=== PATIENT | female | born 1930 | race Caucasian/White ===

== ENCOUNTER 2017-01-20 14:51 | Inpatient (IN) | payer MEDICARE, OTHER ==
--- NOTE | 2017-01-20 15:19 | EDM.PDOC ---
ED HPI GENERAL MEDICAL PROBLEM - General Chief Complaint: Gastrointestinal Problem Stated Complaint: SENT BY TOMMY CUEVAS Time Seen by Provider: 01/20/17 15:13 - History of Present Illness INITIAL COMMENTS - FREE TEXT/NARRATIVE: 86-year-old female comes emergency room from the clinic with dehydration dizziness and hyponatremia. And then the last month the patient was admitted to [facility] in [place] after having a fall hitting her head. CT of her head at that time was unremarkable she had a chest and abdomen CTs done that showed a T2 fracture. She was admitted and started on fluids. And seemed to do better. She was having continued dizziness she's been evaluated by Dr. Alas here in [place] and is scheduled to see him this coming Monday for more testing. However she is getting weaker and more dizzy on her CAT scan she did in [place] a renal mass was noted she has followup with urology in a few weeks. Today in the clinic her sodium was noted to be 119 this was confirmed by repeat testing creatinine is 0.9 BUN 22 her sodium usually runs in the low 130s. Urinalysis was unrevealing CBC showed a white count of 9590 hemoglobin and hematocrit of 13.5 and 38% respectively platelet count 386,000 patient had a repeat head CT was done that didn't show any acute changes. At this time the patient is having worsening dizziness aggravated by change of position. She has been unable to the or drink very much after being discharged from [place] and is getting more unsteady on her feet. Change of position tends to aggravate her dizziness. The patient's been using some ibuprofen Tylenol and Ultram for her pain she hasn't had any ibuprofen for a couple of days her last dose of Ultram was last night. Upper Back Pain Score (Numeric/FACES): 5 - Related Data Allergies Allergy/AdvReac Type Severity Reaction Status Date / Time atorvastatin calcium Allergy Joint Pain Verified 01/20/17 15:10 [From Lipitor] Home Meds: Home Meds Aspirin 81 mg PO DAILY 05/04/15 [History] Atenolol [Tenormin] 25 mg PO DAILY 05/04/15 [History] Calcitriol [Rocaltrol] 0.25 mcg PO DAILY 05/04/15 [History] Hydrochlorothiazide 25 mg PO DAILY 05/04/15 [History] Losartan [Cozaar] 100 mg PO DAILY 05/04/15 [History] Omeprazole 20 mg PO DAILY 05/04/15 [History] Simvastatin [Zocor] 20 mg PO BEDTIME 05/04/15 [History] Acetaminophen [Tylenol] 650 mg PO Q4H PRN #0 tablet 06/08/15 [Rx] Magnesium Oxide [Magnesium] 500 mg PO DAILY 01/20/17 [History] Naproxen [Naprosyn] 500 mg PO ASDIRECTED PRN 01/20/17 [History] traMADol [Ultram] 50 mg PO ASDIRECTED PRN 01/20/17 [History] Past Medical History Other Cardiovascular History: unspecified circulatory disease, heart disease, thoracic anyeursm Other Respiratory History: history of lung disease Other Neuro History: 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 Other Endocrine/Metabolic History: parathyroid issues, cant remeber Other Oncologic History: face and arm Other Dermatologic History: L ac cyst excision, biopsy/punch skin lesion of left hand, fresh frozen section R forearm - Past Surgical History Other HEENT Surgeries/Procedures: bilateral cataract sx Other Endocrine Surgeries/Procedures: parathyroidectomy Social & Family History - Tobacco Use Smoking Status *Q: Never Smoker Second Hand Smoke Exposure: Yes - Alcohol Use Days Per Week of Alcohol Use: 2 Number of Drinks Per Day: 2 Total Drinks Per Week: 4 - Recreational Drug Use Recreational Drug Use: No Drug Use in Last 12 Months: No ED ROS GENERAL - Review of Systems Review Of Systems: See Below Constitutional: Reports: No Symptoms HEENT: Reports: Vertigo. Denies: Ear Discharge, Ear Pain, Hearing Loss, Rhinitis Respiratory: Reports: No Symptoms Cardiovascular: Reports: No Symptoms GI/Abdominal: Reports: Nausea, Vomiting. Denies: Abdominal Pain, Constipation, Diarrhea : Reports: No Symptoms Neurological: Reports: Dizziness. Denies: Headache, Numbness, Seizure, Tingling , Tremors, Trouble Speaking Psychiatric: Reports: No Symptoms Hematologic/Lymphatic: Reports: No Symptoms Immunologic: Reports: No Symptoms ED EXAM, GENERAL - Physical Exam Exam: See Below Exam Limited By: No Limitations General Appearance: Alert, No Apparent Distress, Other (She has dizziness with change of position however returning her head to the right or left has not seemed to aggravate it at this time) Eye Exam: Bilateral Eye: Normal Inspection Ears: Normal External Exam, Normal Canal, Hearing Grossly Normal, Normal TMs Nose: Normal Inspection, Normal Mucosa, No Blood Throat/Mouth: Normal Inspection, Normal Lips, Normal Oropharynx, No Airway Compromise, Other Neck: Normal Inspection, Supple, Non-Tender, Full Range of Motion Respiratory/Chest: No Respiratory Distress, Lungs Clear, Normal Breath Sounds Cardiovascular: Normal Peripheral Pulses, Regular Rate, Rhythm, No Edema, No Murmur GI/Abdominal: Normal Bowel Sounds, Soft, Non-Tender Neurological: Alert, Oriented, Other (Radial nerves II through XII grossly intact cerebellar testing not done all muscle groups in upper and lower extremities are equal and appropriate deep tendon reflexes normal the brachial radialis) Skin Exam: Other (She has some bruising developing in the upper thoracic back area this is where she hit when she fell) Course - Vital Signs Last Recorded V/S: Last Vital Signs Temp 36.6 C 01/20/17 15:20 Pulse 65 01/20/17 15:20 Resp 18 01/20/17 15:20 BP 135/63 01/20/17 15:20 Pulse Ox 100 01/20/17 15:20 - Orders/Labs/Meds Orders: Active Orders 24 hr Category Date Time Status MAGNESIUM [CHEM] Stat Lab 01/20/17 12:40 Received Sodium Chloride 0.9% [Normal Saline] 1,000 ml Med 01/20/17 15:45 Active IV ASDIRECTED Medication Orders Sodium Chloride (Normal Saline) 1,000 mls @ 150 mls/hr IV ASDIRECTED SE[facility]N Last Admin: 01/20/17 15:51 Dose: 150 mls/hr Meds: Medications Generic Name Dose Route Start Last Admin Trade Name Freq PRN Reason Stop Dose Admin Sodium Chloride 1,000 mls @ 150 mls/hr 01/20/17 15:45 01/20/17 15:51 Normal Saline IV 150 mls/hr ASDIRECTED SE[facility]STI[facility]N Administration - Re-Assessments/Exams Free Text/Narrative Re-Assessment/Exam: 01/20/17 16:40 Patient was sent to emergency room from the clinic with dehydration dizziness and hyponatremia she has a brain MRI pending the patient has had continued nausea secondary to dizziness. And as a result is having difficulty maintaining her fluid status. Labs reviewed situation reviewed MRI reviewed which shows no acute changes. The patient is examined no significant abnormalities noted. Case discussed with our hospitalist , the patient will be admitted. Departure - Departure Time of Disposition: 16:45 Disposition: Admitted As Inpatient 66 Clinical Impression: Dehydration with hyponatremia, Vertigo - Discharge Information Forms: ED Department Discharge - My Orders Last 24 Hours: My Active Orders 01/20/17 12:40 MAGNESIUM [CHEM] Stat 01/20/17 15:45 Sodium Chloride 0.9% [Normal Saline] 1,000 ml IV ASDIRECTED - Assessment/Plan Last 24 Hours: My Active Orders 01/20/17 12:40 MAGNESIUM [CHEM] Stat 01/20/17 15:45 Sodium Chloride 0.9% [Normal Saline] 1,000 ml IV ASDIRECTED
[2017-01-20] MEDS: Sodium Chloride 0.9% 1,000 ML IV SCH ×2 (15:51→23:29)
--- NOTE | 2017-01-20 16:51 | PCM.HP ---
H&P History of Present Illness - General Date of Service: 01/20/17 Admit Problem/Dx: Confusion and Hypnatremia Source of Information: Patient, Family, Old Records, Police, Provider, RN Notes Reviewed History Limitations: Reports: Altered Mental Status - History of Present Illness Initial Comments - Free Text/Narative: This is an 86-year-old elderly white female with past medical history of hypertension, hyperlipidemia, COPD, history of CVA, history of cholecystectomy, thoracic aneurysm, chronic back pain, osteoporosis, osteoarthritis, history of basal cell carcinoma, history of H. pylori infection, chronic hypocalcemia and hypomagnesemia, history of pulmonary nodules, chronic cough, hx/o sensorineural hearing loss, and history of renal mass who presented to his primary care office for evaluation of nausea without emesis and was found to be hyponatremic with a sodium level of 119. Her symptoms is associated with anorexia, dehydration, vertigo, fatigue, neck pain and generalized weakness. She denies having systemic infection. Patient was recently admitted in [place] after recent fall related to hypotension. During that time, she was found to have T2 vertebral fracture but no invasive intervention offered. Her initial workup in the clinic shows a CBC remarkable for platelet 386 and neutrophils 83.1%. Her chemistry is remarkable for sodium 119, chloride 86, BUN 22, glucose 126, and alkaline phosphatase 121. Head CT scan report reads no acute intra-cranial abnormality. Her brain MRI report reads no acute diffusion abnormalities identified. Patient is being admitted for symptomatic hyponatremia. Her CODE STATUS is full. Upper Back Pain Score (Numeric/FACES): 5 - Related Data Allergies/Adverse Reactions: Allergies Allergy/AdvReac Type Severity Reaction Status Date / Time atorvastatin calcium Allergy Joint Pain Verified 01/20/17 15:10 [From Lipitor] Home Medications: Home Meds Aspirin 81 mg PO DAILY 05/04/15 [History] Atenolol [Tenormin] 25 mg PO DAILY 05/04/15 [History] Calcitriol [Rocaltrol] 0.25 mcg PO DAILY 05/04/15 [History] Hydrochlorothiazide 25 mg PO DAILY 05/04/15 [History] Losartan [Cozaar] 100 mg PO DAILY 05/04/15 [History] Omeprazole 20 mg PO DAILY 05/04/15 [History] Simvastatin [Zocor] 20 mg PO BEDTIME 09/21/15 [History] Acetaminophen [Tylenol] 650 mg PO Q4H PRN #0 tablet 06/08/15 [Rx] Magnesium Oxide [Magnesium] 500 mg PO DAILY 01/20/17 [History] Naproxen [Naprosyn] 500 mg PO ASDIRECTED PRN 01/20/17 [History] traMADol [Ultram] 50 mg PO ASDIRECTED PRN 01/20/17 [History] Past Medical History HEENT History: Reports: Impaired Vision Cardiovascular History: Reports: High Cholesterol, Hypertension Other Cardiovascular History: unspecified circulatory disease, heart disease, thoracic anyeursm Other Respiratory History: history of lung disease [employer] History: Reports: Musculoskeletal History: Reports: Other (See Below) Other Musculoskeletal History: fall and fx of T2 Other Neuro History: 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 Other Endocrine/Metabolic History: parathyroid issues, cant remeber Other Oncologic History: face and arm Other Dermatologic History: L ac cyst excision, biopsy/punch skin lesion of left hand, fresh frozen section R forearm - Past Surgical History Other HEENT Surgeries/Procedures: bilateral cataract sx Other Endocrine Surgeries/Procedures: parathyroidectomy Social & Family History - Tobacco Use Smoking Status *Q: Never Smoker Second Hand Smoke Exposure: Yes - Caffeine Use Caffeine Use: Reports: Coffee - Alcohol Use Days Per Week of Alcohol Use: 2 Number of Drinks Per Day: 2 Total Drinks Per Week: 4 - Recreational Drug Use Recreational Drug Use: No Drug Use in Last 12 Months: No H&P Review of Systems - Review of Systems: Review Of Systems: See Below General: Reports: Weakness, Fatigue, Decreased Appetite. Denies: Fever, Chills HEENT: Reports: No Symptoms Pulmonary: Denies: Shortness of Breath Cardiovascular: Denies: Chest Pain, Palpitations, Dyspnea on Exertion, Edema, Lightheadedness, Syncope, Claudication, Blood Pressure Problem Gastrointestinal: Reports: Anorexia, Decreased Appetite, Nausea. Denies: Abdominal Pain, Difficulty Swallowing, Vomiting Genitourinary: Reports: No Symptoms Musculoskeletal: Reports: Muscle Stiffness (neck) Skin: Denies: Cyanosis, Pallor, Diaphoresis, Rash, Erythema Psychiatric: Reports: Confusion. Denies: Depression, Anxiety, Hallucinations, Suicidal Ideation Neurological: Reports: Dizziness (vertigo), Weakness, Gait Disturbance. Denies : Numbness, Paresthesia, Seizure, Syncope, Tingling, Trouble Speaking, Difficulty Walking, Change in Speech Hematologic/Lymphatic: Reports: No Symptoms Immunologic: Reports: No Symptoms Exam - Exam Exam: See Below - Vital Signs Vital Signs: Last Vital Signs Temp 36.6 C 01/20/17 15:20 Pulse 65 01/20/17 15:20 Resp 18 01/20/17 15:20 BP 135/63 01/20/17 15:20 Pulse Ox 100 01/20/17 15:20 Weight: 68.039 kg - Exam General: Alert, Cooperative, Mild Distress. No: Oriented HEENT: Conjunctiva Clear, EACs Clear, EOMI, Hearing Intact, Mucosa Moist & [place] , Nares Patent, Normal Nasal Septum, Posterior Pharynx Clear, Pupils Equal, Pupils Reactive, TMs Clear Neck: Supple, Trachea Midline, +2 Carotid Pulse wo Bruit, Full Range of Motion. No: JVD Lungs: Clear to Auscultation, Normal Respiratory Effort Cardiovascular: Regular Rate, Regular Rhythm Abdomen: Normal Bowel Sounds, Soft. No: Organomegaly, Tenderness (Female) Exam: Deferred Rectal (Female) Exam: Deferred Back Exam: Normal Inspection, Decreased Range of Motion Extremities: Normal Inspection, Normal Pulses Peripheral Pulses: 2+: Posterior Tibial (L), Posterior Tibial (R), Dorsalis Pedis (L), Dorsalis Pedis (R) Skin: Warm, Dry, Intact Neuro Extensive - Mental Status: Alert, Normal Cognition, Memory Intact Neuro Extensive - Motor, Sensory, Reflexes: CN II-XII Intact (limited by dizziness and nausea), Normal Gait Psychiatric: Alert, Normal Affect, Normal Mood - Patient Data Lab Results last 24 hrs: Laboratory Results - last 24 hr 01/20/17 Range/Units 12:40 Magnesium 1.8 (1.8-2.4) mg/dl EKG INTERPRETATION EKG Date: 01/20/17 Time: 13:34 Rhythm: other (Sinus Bradycardia) Rate (beats/min): 55 Comparison: change from previous EKG EKG Interpretation Comments: 1st Degree AV Block and Slight ST elevation on V3-V6. Possible inferior infarct- old (not clear on ekg copy) *Q Meaningful Use (ADM) - VTE *Q VTE Criteria *Q: - Stroke *Q Stroke Criteria *Q: - AMI *Q AMI Criteria *Q: Problem List Initiated/Reviewed/Updated: Yes Orders Last 24hrs: Active Orders 24 hr Category Date Time Status Sodium Chloride 0.9% [Normal Saline] 1,000 ml Med 01/20/17 15:45 Active IV ASDIRECTED Medication Orders Sodium Chloride (Normal Saline) 1,000 mls @ 150 mls/hr IV ASDIRECTED [facility] Last Admin: 01/20/17 15:51 Dose: 150 mls/hr Assessment/Plan Comment:: Assessment/Plan: Acute: Symptomatic Hyponatremia (she is somewhat confused) - Na is 119 (132 last week per document) - She is not on SSRIs/SNRIs - She is not on HCTZ - Her oral intake is not the best per daughter - NS IVF for maintenance - Salt tablet 1 tab po TID - Routine BMP Poor Appetite - Marinol 2.5 mg po 15-20 mins before each meal - Can have anything she wants to eat Generalized Weakness - TFT and Vit D level - PT/OT for eval Dizziness/Vertigo - Has Hx/o Sensorineural Hearing Loss - Currently being worked on by Dr. 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
[2017-01-20] MEDS ORDERED: LORazepam 2 MG/ML MDV IV PRN (17:21)
[2017-01-20] MEDS ORDERED: Albuterol/Ipratropium 3.0-0.5 MG/3 ML Neb Soln NEB PRN (17:21)
[2017-01-20] MEDS ORDERED: Bisacodyl 5 MG Tab PO PRN (17:21)
[2017-01-20] MEDS ORDERED: Temazepam 15 MG Cap PO PRN (17:21)
[2017-01-20] MEDS ORDERED: Polyethylene Glycol 3350 Powder 17 GM Packet PO PRN (17:21)
[2017-01-20] MEDS ORDERED: Ondansetron 4 MG/2 ML SDV IV PRN (17:21)
[2017-01-20] MEDS ORDERED: Promethazine 12.5 MG in Sodium Chloride 0.9% 50 ML IV PRN (17:21)
[2017-01-20] MEDS ORDERED: Acetaminophen 325 MG Tab PO PRN (17:28)
[2017-01-20] MEDS ORDERED: Scopolamine 1.5 MG Transdermal Patch TOP ONE ×2 (17:29→21:05)
[2017-01-20] MEDS ORDERED: Metoprolol Tartrate 5 MG/5 ML SDV IVPUSH PRN (17:29)
[2017-01-20] MEDS: Potassium Chloride/Sodium Chloride Tab PO SCH (21:17)
[2017-01-20] MEDS: Simvastatin 40 MG Tab PO SCH (21:18)
[2017-01-21] MEDS: Sodium Chloride 0.9% 1,000 ML IV SCH ×3 (05:16→19:18)
[2017-01-21] MEDS: Dronabinol 2.5 MG Cap PO SCH ×3 (06:04→16:37)
--- NOTE | 2017-01-21 06:13 | PCM.PN ---
- General Info Date of Service: 01/21/17 Admission Dx/Problem (Free Text): Confusion and Hypnatremia Subjective Update: Follow Up Functional Status: Reports: pain controlled, urinating. Denies: new symptoms - Review of Systems General: Denies: Fever, Weakness, Fatigue, Malaise HEENT: Reports: no symptoms Pulmonary: Reports: no symptoms Cardiovascular: Reports: No Symptoms Gastrointestinal: Reports: Nausea. Denies: Abdominal pain, Vomiting Genitourinary: Reports: no symptoms Musculoskeletal: Reports: no symptoms Skin: Reports: no symptoms Neurological: Reports: Confusion, Dizziness, Weakness, Gait Disturbance Psychiatric: Denies: confusion, depression, anxiety, agitation, hallucinations Systems Review Comment:: No overnight or acute issues. Her Na level now is at 127. Her Mg is at 1.7 this am. Troponin x1 negative. She still complaints of dizziness and nausea which are not new to her. She has no other complaints. - Patient Data Vitals - most recent: Last Vital Signs Temp 36.2 C 01/20/17 19:53 Pulse 65 01/20/17 19:53 Resp 16 01/20/17 19:53 BP 130/39 L 01/20/17 21:16 Pulse Ox 100 01/20/17 19:53 Weight - most recent: 68.311 kg I&O - last 24 hours: Intake & Output 01/20/17 01/20/17 01/21/17 14:59 22:59 06:59 Intake Total 1593 Output Total 1250 Balance 343 Lab Results last 24 hrs: Laboratory Results - last 24 hr 01/20/17 01/20/17 Range/Units 20:46 20:55 Sodium 122 L (136-145) mEq/L MRSA (PCR) Negative Med Orders - Current: Current Medications Acetaminophen (Tylenol) 650 mg PO Q4H PRN PRN Reason: Pain (Mild 1-3)/fever Hydrocodone Bitart/Acetaminophen ([place] 325-5 Mg) 1 tab PO Q4H PRN PRN Reason: Pain (moderate 4-6) Albuterol/Ipratropium (Duoneb 3.0-0.5 Mg/3 Ml) 3 ml NEB Q4H PRN PRN Reason: Shortness Of Breath/wheezing Aspirin (Aspirin) 81 mg PO DAILY [facility] Atenolol (Tenormin) 25 mg PO DAILY [facility] Bisacodyl (Dulcolax) 5 mg PO DAILY PRN PRN Reason: Constipation Calcitriol (Rocaltrol) 0.25 mcg PO DAILY [facility] Dronabinol (Marinol) 2.5 mg PO TIDAC [facility] Last Admin: 01/21/17 06:04 Dose: Not Given Hydralazine HCl (Apresoline) 10 mg IVPUSH Q4H PRN PRN Reason: Hypertension Hydrochlorothiazide (Hydrochlorothiazide) 25 mg PO DAILY [facility] Hydromorphone HCl (Dilaudid) 0.25 mg IVPUSH Q2H PRN PRN Reason: Pain (severe 7-10) Sodium Chloride (Normal Saline) 1,000 mls @ 150 mls/hr IV ASDIRECTED [facility] Last Admin: 01/21/17 05:16 Dose: 150 mls/hr Promethazine HCl 12.5 mg/ (Sodium Chloride) 50.5 mls @ 100 mls/hr IV Q6H PRN PRN Reason: Nausea/Vomiting Lorazepam (Ativan) 0.25 mg IV Q6H PRN PRN Reason: Anxiety Losartan Potassium (Cozaar) 100 mg PO DAILY [facility] Magnesium Oxide (Magnesium Oxide) 400 mg PO DAILY [facility] Magnesium Sulfate (Pharmacy To Dose - Magnesium Replacement) 1 dose .XX ASDIRECTED [facility] Meclizine HCl (Antivert) 25 mg PO Q6H PRN PRN Reason: Dizziness Metoprolol Tartrate (Lopressor) 5 mg IVPUSH Q4H PRN PRN Reason: Tachycardia Ondansetron HCl (Zofran) 4 mg IV Q6H PRN PRN Reason: Nausea/Vomiting Oral Electrolytes (Thermotabs) 1 each PO TID [facility] Last Admin: 01/20/17 21:17 Dose: 1 each Pantoprazole Sodium (Protonix) 40 mg PO DAILY [facility] Polyethylene Glycol (Miralax) 17 gm PO DAILY PRN PRN Reason: Constipation Potassium Chloride (Pharmacy To Dose - Potassium Replacement) 1 dose .XX ASDIRECTED [facility] Senna/Docusate Sodium (Senna Plus) 1 tab PO BID PRN PRN Reason: Constipation Simvastatin (Zocor) 20 mg PO BEDTIME [facility] Last Admin: 01/20/17 21:18 Dose: 20 mg Temazepam (Restoril) 7.5 mg PO BEDTIME PRN PRN Reason: Sleep Discontinued Medications Magnesium Oxide [ (Magnesium] 500mg) 500 mg PO DAILY [facility] Scopolamine (Transderm-Scop) 1.5 mg TOP ONETIME ONE Stop: 01/20/17 17:30 Last Admin: 01/20/17 21:17 Dose: 1.5 mg Scopolamine (Transderm-Scop) 1.5 mg TOP ONETIME ONE Stop: 01/20/17 21:06 Last Admin: 01/20/17 23:39 Dose: Not Given Temazepam (Restoril) 7.5 mg PO BEDTIME PRN PRN Reason: Sleep - Exam General: alert, oriented, cooperative, no acute distress HEENT: Pupils equal, Pupils reactive, EOMI, Mucous membr. moist/pink, Other Neck: supple, trachea midline, no JVD, no thyromegaly Lungs: Clear to auscultation, Normal respiratory effort Cardiovascular: Regular Rate, Regular Rhythm Abdomen: bowel sounds present, soft, no tenderness, no distension (Female) Exam: Deferred Back Exam: Normal Inspection, Decreased Range of Motion Extremities: no edema, normal pulses, no tenderness/swelling, no clubbing, no cyanosis, no calf tenderness Peripheral Pulses: 2+: Dorsalis Pedis (L), Dorsalis Pedis (R) Skin: warm, dry, intact Neurological: no new focal deficit Psy/Mental Status: alert, normal affect, normal mood - Problem List Review Problem List Initiated/Reviewed/Updated: Yes - My Orders Last 24 Hours: My Active Orders 01/20/17 23:37 Temazepam [Restoril] 7.5 mg PO BEDTIME PRN 01/21/17 03:53 EKG 12 Lead [EKG Documentation Completion] [RC] AM 01/21/17 05:11 CKMB [CHEM] AM TROPONIN I [CHEM] AM 01/21/17 09:00 Magnesium Oxide 400 mg PO DAILY - Plan Plan:: Assessment/Plan: Acute: Symptomatic Hyponatremia (she is somewhat confused) - Na is 119 (132 last week per document), now at 127 - She is not on SSRIs/SNRIs or HCTZ - Her oral intake is not the best per daughter - Continue NS IVF for maintenance and Salt tablet 1 tab po TID - Routine BMP Poor Appetite - Marinol 2.5 mg po 15-20 mins before each meal - Can have anything she wants to eat - She had breakfast this am Generalized Weakness - TFT and Vit D level pending - Continue PT/OT Dizziness/Vertigo - Has Hx/o Sensorineural Hearing Loss - Currently being worked on by Dr. Alas - PT for vestibular eval - PRN meds for symptomatic control - Defer to Dr. Alas outpatient once discharge for further eval Sinus Bradycardia - On EKG form the clinic it shows a HR of 55 and 1st Degree AV Block - She is not on CCB or BB - Repeat EKG this AM: Sinus Bradycardia with 1st Degree AVB - Telemetry to monitor Hx/o Hypotension - Current BP is 135/63 mmHg Chronic: HTN HLD Cough Hx/o Sensorineural Hearing Loss Back Pain Hypocalcemia and Hypomagnesemia Hx/o Pancreatic Cyst Pulmonary Nodules T2 Vertebral Fracture Thoracic Aneurysm Renal Mass Plan: She looks better this am Continue current treatment Routine AM Labs Fall and Seizure Precautions Continue PT/OT consult SW/CM for d/c planning Code status: 1
[2017-01-21] MEDS: Aspirin 81 MG Tab.Chew PO SCH (08:21)
[2017-01-21] MEDS: Magnesium Oxide 400 MG Tab PO SCH (08:22)
[2017-01-21] MEDS: Potassium Chloride/Sodium Chloride Tab PO SCH ×3 (08:22→20:59)
[2017-01-21] MEDS: Pantoprazole 40 MG Tab.CR PO SCH (08:22)
[2017-01-21] MEDS: Atenolol 50 MG Tab PO SCH (08:22)
[2017-01-21] MEDS: Hydrochlorothiazide 25 MG Tab PO SCH (08:22)
[2017-01-21] MEDS: Losartan 100 MG Tab PO SCH (08:23)
[2017-01-21] MEDS: Calcitriol 0.25 MCG Cap PO SCH (08:23)
[2017-01-21] MEDS: Acetaminophen/HYDROcodone 325-5 MG Tab PO PRN ×3 (08:27→23:41)
[2017-01-21] MEDS ORDERED: MAGNESIUM OXIDE 500 MG PO SCH (09:00)
[2017-01-21] MEDS: HYDROmorphone 1 MG/ML Syringe IVPUSH PRN ×2 (18:52→21:12)
[2017-01-21] MEDS: Simvastatin 40 MG Tab PO SCH (20:59)
[2017-01-22] MEDS: hydrALAZINE 20 MG/ML SDV IVPUSH PRN ×2 (01:30→20:25)
[2017-01-22] MEDS: Sodium Chloride 0.9% 1,000 ML IV SCH ×2 (01:36→08:50)
[2017-01-22] MEDS: HYDROmorphone 1 MG/ML Syringe IVPUSH PRN ×2 (02:00→15:50)
[2017-01-22] MEDS: Acetaminophen/HYDROcodone 325-5 MG Tab PO PRN ×3 (04:25→20:08)
--- NOTE | 2017-01-22 06:34 | PCM.PN ---
- General Info Date of Service: 01/22/17 Admission Dx/Problem (Free Text): Confusion and Hypnatremia Subjective Update: Follow Up Functional Status: Reports: pain controlled, tolerating diet, urinating. Denies : new symptoms - Review of Systems General: Denies: Fever, Chills HEENT: Reports: no symptoms Pulmonary: Denies: shortness of breath Cardiovascular: Denies: Chest Pain Gastrointestinal: Denies: Abdominal pain, Nausea, Vomiting Genitourinary: Reports: no symptoms Musculoskeletal: Reports: no symptoms Neurological: Reports: Dizziness, Gait Disturbance. Denies: Difficulty Walking , Weakness Psychiatric: Denies: depression, anxiety, agitation, cravings Systems Review Comment:: No overnight or acute issues. She feel a bit better. Still dizzy but w/o nausea or emesis. She is now eating just fine and appetite is good. - Patient Data Vitals - most recent: Last Vital Signs Temp 36.7 C 01/22/17 04:08 Pulse 60 01/22/17 04:08 Resp 20 01/22/17 04:08 BP 176/65 H 01/22/17 04:30 Pulse Ox 100 01/22/17 04:08 Weight - most recent: 70.488 kg I&O - last 24 hours: Intake & Output 01/21/17 01/21/17 01/22/17 14:59 22:59 06:59 Intake Total 920 1835 2112 Output Total 600 1300 Balance 320 1835 812 Lab Results last 24 hrs: Laboratory Results - last 24 hr 01/21/17 01/21/17 01/21/17 Range/Units 06:00 06:00 06:00 WBC 6.08 (3.98-10.04) K/mm3 RBC 4.31 (3.98-5.22) M/mm3 Hgb 12.1 (11.2-15.7) gm/L Hct 34.5 (34.1-44.9) % MCV 80.0 (79.4-94.8) fl MCH 28.1 (25.6-32.2) pg MCHC 35.1 (32.2-35.5) g/dl RDW Std Deviation 43.2 (36.4-46.3) fL Plt Count 296 (182-369) K/mm3 MPV 9.6 (9.4-12.3) fl Neut % (Auto) 74.7 H (34.0-71.1) % Lymph % (Auto) 12.5 L (19.3-51.7) % [place] % (Auto) 11.7 (4.7-12.5) % Eos % (Auto) 0.7 (0.7-5.8) Baso % (Auto) 0.2 (0.1-1.2) % Neut # (Auto) 4.55 (1.56-6.13) K/mm3 Lymph # (Auto) 0.76 L (1.18-3.74) K/mm3 [place] # (Auto) 0.71 H (0.24-0.36) K/mm3 Eos # (Auto) 0.04 (0.04-0.36) K/mm3 Baso # (Auto) 0.01 (0.01-0.08) K/mm3 Sodium 127 L (136-145) mEq/L Potassium 4.1 (3.5-5.1) mEq/L Chloride 95 L (98-107) mEq/L Carbon Dioxide 20 L (21-32) mEq/L Anion Gap 16.1 H (5-15) BUN 17 (7-18) mg/dL Creatinine 0.8 (0.55-1.02) mg/dL Est Cr Clr Drug Dosing 43.59 mL/min Estimated GFR (MDRD) > 60 (>60) mL/min BUN/Creatinine Ratio 21.3 H (14-18) Glucose 76 L (83-115) mg/dL Calcium 8.3 L (8.5-10.1) mg/dL Magnesium 1.7 L (1.8-2.4) mg/dl CK-MB (CK-2) 1.5 (0-3.6) ng/ml Troponin I < 0.017 (0.00-0.056) ng/mL Free T4 1.80 H (0.76-1.46) ng/dL TSH 3rd Generation 0.574 (0.358-3.74) uIU/mL 01/22/17 Range/Units 06:00 WBC 7.10 (3.98-10.04) K/mm3 RBC 4.48 (3.98-5.22) M/mm3 Hgb 12.8 (11.2-15.7) gm/L Hct 36.9 (34.1-44.9) % MCV 82.4 (79.4-94.8) fl MCH 28.6 (25.6-32.2) pg MCHC 34.7 (32.2-35.5) g/dl RDW Std Deviation 46.4 H (36.4-46.3) fL Plt Count 318 (182-369) K/mm3 MPV 9.3 L (9.4-12.3) fl Neut % (Auto) 72.0 H (34.0-71.1) % Lymph % (Auto) 15.5 L (19.3-51.7) % [place] % (Auto) 10.7 (4.7-12.5) % Eos % (Auto) 1.1 (0.7-5.8) Baso % (Auto) 0.4 (0.1-1.2) % Neut # (Auto) 5.11 (1.56-6.13) K/mm3 Lymph # (Auto) 1.10 L (1.18-3.74) K/mm3 [place] # (Auto) 0.76 H (0.24-0.36) K/mm3 Eos # (Auto) 0.08 (0.04-0.36) K/mm3 Baso # (Auto) 0.03 (0.01-0.08) K/mm3 Sodium (136-145) mEq/L Potassium (3.5-5.1) mEq/L Chloride (98-107) mEq/L Carbon Dioxide (21-32) mEq/L Anion Gap (5-15) BUN (7-18) mg/dL Creatinine (0.55-1.02) mg/dL Est Cr Clr Drug Dosing mL/min Estimated GFR (MDRD) (>60) mL/min BUN/Creatinine Ratio (14-18) Glucose (83-115) mg/dL Calcium (8.5-10.1) mg/dL Magnesium (1.8-2.4) mg/dl CK-MB (CK-2) (0-3.6) ng/ml Troponin I (0.00-0.056) ng/mL Free T4 (0.76-1.46) ng/dL TSH 3rd Generation (0.358-3.74) uIU/mL Med Orders - Current: Current Medications Acetaminophen (Tylenol) 650 mg PO Q4H PRN PRN Reason: Pain (Mild 1-3)/fever Hydrocodone Bitart/Acetaminophen ([place] 325-5 Mg) 1 tab PO Q4H PRN PRN Reason: Pain (moderate 4-6) Last Admin: 01/22/17 04:25 Dose: 1 tab Albuterol/Ipratropium (Duoneb 3.0-0.5 Mg/3 Ml) 3 ml NEB Q4H PRN PRN Reason: Shortness Of Breath/wheezing Aspirin (Aspirin) 81 mg PO DAILY [facility] Last Admin: 01/21/17 08:21 Dose: 81 mg Atenolol (Tenormin) 25 mg PO DAILY [facility] Last Admin: 01/21/17 08:22 Dose: 25 mg Bisacodyl (Dulcolax) 5 mg PO DAILY PRN PRN Reason: Constipation Calcitriol (Rocaltrol) 0.25 mcg PO DAILY [facility] Last Admin: 01/21/17 08:23 Dose: 0.25 mcg Dronabinol (Marinol) 2.5 mg PO TIDAC [facility] Last Admin: 01/21/17 16:37 Dose: 2.5 mg Hydralazine HCl (Apresoline) 10 mg IVPUSH Q4H PRN PRN Reason: Hypertension Last Admin: 01/22/17 01:30 Dose: 10 mg Hydrochlorothiazide (Hydrochlorothiazide) 25 mg PO DAILY [facility] Last Admin: 01/21/17 08:22 Dose: 25 mg Hydromorphone HCl (Dilaudid) 0.25 mg IVPUSH Q2H PRN PRN Reason: Pain (severe 7-10) Last Admin: 01/22/17 02:00 Dose: 0.25 mg Sodium Chloride (Normal Saline) 1,000 mls @ 150 mls/hr IV ASDIRECTED [facility] Last Admin: 01/22/17 01:36 Dose: 150 mls/hr Promethazine HCl 12.5 mg/ (Sodium Chloride) 50.5 mls @ 100 mls/hr IV Q6H PRN PRN Reason: Nausea/Vomiting Lorazepam (Ativan) 0.25 mg IV Q6H PRN PRN Reason: Anxiety Losartan Potassium (Cozaar) 100 mg PO DAILY [facility] Last Admin: 01/21/17 08:23 Dose: 100 mg Magnesium Oxide (Magnesium Oxide) 400 mg PO DAILY [facility] Last Admin: 01/21/17 08:22 Dose: 400 mg Magnesium Sulfate (Pharmacy To Dose - Magnesium Replacement) 1 dose .XX ASDIRECTED [facility] Meclizine HCl (Antivert) 25 mg PO Q6H PRN PRN Reason: Dizziness Last Admin: 01/21/17 08:36 Dose: 25 mg Metoprolol Tartrate (Lopressor) 5 mg IVPUSH Q4H PRN PRN Reason: Tachycardia Ondansetron HCl (Zofran) 4 mg IV Q6H PRN PRN Reason: Nausea/Vomiting Oral Electrolytes (Thermotabs) 1 each PO TID [facility] Last Admin: 01/21/17 20:59 Dose: 1 each Pantoprazole Sodium (Protonix) 40 mg PO DAILY [facility] Last Admin: 01/21/17 08:22 Dose: 40 mg Polyethylene Glycol (Miralax) 17 gm PO DAILY PRN PRN Reason: Constipation Potassium Chloride (Pharmacy To Dose - Potassium Replacement) 1 dose .XX ASDIRECTED [facility] Senna/Docusate Sodium (Senna Plus) 1 tab PO BID PRN PRN Reason: Constipation Simvastatin (Zocor) 20 mg PO BEDTIME [facility] Last Admin: 01/21/17 20:59 Dose: 20 mg Temazepam (Restoril) 7.5 mg PO BEDTIME PRN PRN Reason: Sleep Discontinued Medications Magnesium Oxide [ (Magnesium] 500mg) 500 mg PO DAILY [facility] Scopolamine (Transderm-Scop) 1.5 mg TOP ONETIME ONE Stop: 01/20/17 17:30 Last Admin: 01/20/17 21:17 Dose: 1.5 mg Scopolamine (Transderm-Scop) 1.5 mg TOP ONETIME ONE Stop: 01/20/17 21:06 Last Admin: 01/20/17 23:39 Dose: Not Given Temazepam (Restoril) 7.5 mg PO BEDTIME PRN PRN Reason: Sleep - Exam General: alert, oriented, cooperative, no acute distress HEENT: Pupils equal, Pupils reactive, EOMI, Mucous membr. moist/pink Neck: supple Lungs: Clear to auscultation, Normal respiratory effort Cardiovascular: Regular Rhythm, Bradycardia Abdomen: bowel sounds present, soft, no tenderness, no distension (Female) Exam: Deferred Back Exam: Normal Inspection, Decreased Range of Motion Extremities: no edema, normal pulses, no tenderness/swelling, no clubbing, no cyanosis, no calf tenderness Skin: warm, dry, intact Neurological: no new focal deficit Psy/Mental Status: alert, normal affect, normal mood - Problem List Review Problem List Initiated/Reviewed/Updated: Yes - My Orders Last 24 Hours: My Active Orders 01/21/17 06:00 VITAMIN D 25-HYROXY (D2, D3) [REF] Stat 01/21/17 09:00 Magnesium Oxide 400 mg PO DAILY - Plan Plan:: Assessment/Plan: Acute: Hyponatremia, now Asymptomatic - Na is 119 (132 last week per document), level is no at 131 - She is not on SSRIs/SNRIs or HCTZ - Her oral intake has now picked up - Continue NS IVF for maintenance and Salt tablet 1 tab po TID - Routine BMP Generalized Weakness, Improved - TFT Low-normal TSH and Elevated FT4-suggestive of Hyperthyroidism - Vit D level pending - Continue PT/OT Dizziness/Vertigo, still lingers - Has Hx/o Sensorineural Hearing Loss - Currently being worked on by Dr. Alas - PT for vestibular eval scheduled for Monday - PRN meds for symptomatic control - Defer to Dr. Alas outpatient once discharge for further eval Sinus Bradycardia - On EKG form the clinic it shows a HR of 55 and 1st Degree AV Block - She is not on CCB or BB - Repeat EKG this AM: Sinus Bradycardia with 1st Degree AVB - Telemetry to monitor - D/c'd atenolol and start coreg 12.5 mg po BID first dose tonight Abnormal TFT - Result suggestive of Hyperthyroidism - Will check for T3 level - Consider outpatient for any further work up Resolved: Hx/o Hypotension - Current BP is 135/63 mmHg S/p Poor Appetite - Marinol 2.5 mg po 15-20 mins before each meal - Can have anything she wants to eat - She is no eating as usual Chronic: HTN HLD Cough Hx/o Sensorineural Hearing Loss Back Pain Hypocalcemia and Hypomagnesemia Hx/o Pancreatic Cyst Pulmonary Nodules T2 Vertebral Fracture Thoracic Aneurysm Renal Mass Plan: She continues to improve clinically Continue current treatment Routine AM Labs Fall and Seizure Precautions Continue PT/OT SW/CM for d/c planning Code status: 1 Patient lives on her own. She may not do well if her vestibular dysfunction persists. Will have SW/CM take a look at her home status.
[2017-01-22] MEDS: Dronabinol 2.5 MG Cap PO SCH ×3 (07:25→16:37)
[2017-01-22] MEDS: Calcitriol 0.25 MCG Cap PO SCH (08:08)
[2017-01-22] MEDS: Hydrochlorothiazide 25 MG Tab PO SCH (08:08)
[2017-01-22] MEDS: Magnesium Oxide 400 MG Tab PO SCH (08:08)
[2017-01-22] MEDS: Losartan 100 MG Tab PO SCH (08:08)
[2017-01-22] MEDS: Aspirin 81 MG Tab.Chew PO SCH (08:08)
[2017-01-22] MEDS: Pantoprazole 40 MG Tab.CR PO SCH (08:09)
[2017-01-22] MEDS: Potassium Chloride/Sodium Chloride Tab PO SCH ×3 (08:09→20:14)
[2017-01-22] MEDS: Atenolol 50 MG Tab PO SCH (09:02)
[2017-01-22] MEDS ORDERED: Magnesium Sulfate/Water 50 ML IV ONE (16:30)
[2017-01-22] MEDS: Simvastatin 40 MG Tab PO SCH (20:14)
[2017-01-22] MEDS: Carvedilol 12.5 MG Tab PO SCH (20:23)
[2017-01-23] MEDS: Acetaminophen/HYDROcodone 325-5 MG Tab PO PRN ×3 (00:39→09:15)
[2017-01-23] MEDS: hydrALAZINE 20 MG/ML SDV IVPUSH PRN (04:06)
[2017-01-23] MEDS: Dronabinol 2.5 MG Cap PO SCH ×3 (06:46→17:09)
[2017-01-23] MEDS ORDERED: Magnesium Sulfate/Water 2 GM in Premix Bag 1 BAG IV ONE (08:14)
[2017-01-23] MEDS ORDERED: Pneumococcal Polyvalent-23 Vaccine 0.5 ML SDV SUBCUT ONE (08:24)
[2017-01-23] MEDS ORDERED: Magnesium Sulfate/Water 50 ML ONE (09:02)
[2017-01-23] MEDS: Aspirin 81 MG Tab.Chew PO SCH (09:14)
[2017-01-23] MEDS: Potassium Chloride/Sodium Chloride Tab PO SCH ×3 (09:15→21:30)
[2017-01-23] MEDS: Calcitriol 0.25 MCG Cap PO SCH (09:15)
[2017-01-23] MEDS: Pantoprazole 40 MG Tab.CR PO SCH (09:15)
[2017-01-23] MEDS: Magnesium Oxide 400 MG Tab PO SCH (09:16)
[2017-01-23] MEDS: amLODIPine 5 MG Tab PO SCH (09:18)
[2017-01-23] MEDS: Carvedilol 12.5 MG Tab PO SCH ×2 (09:18→21:31)
[2017-01-23] MEDS: Hydrochlorothiazide 25 MG Tab PO SCH (09:19)
[2017-01-23] MEDS: Losartan 100 MG Tab PO SCH (09:19)
[2017-01-23] MEDS ORDERED: Methocarbamol 500 MG Tab PO ONE (09:46)
--- NOTE | 2017-01-23 09:54 | PCM.PN ---
- General Info Date of Service: 01/23/17 Admission Dx/Problem (Free Text): Confusion and Hypnatremia Aida is seen this morning; pleasant and orientated. She has complaints of right shoulder pain with any movement. She is rt hand dominant. Denies CP, SOB, abd pain, back pain today. Just finished with shower with OT; did well other than restricted rt arm/ shoulder movement today. Spoke with [id number] today with update. She provided information that patient is usually very independent and high functioning prior to this. Functional Status: Reports: tolerating diet, ambulating, urinating. Denies: new symptoms - Review of Systems General: Reports: No Symptoms HEENT: Reports: no symptoms Pulmonary: Reports: no symptoms. Denies: shortness of breath, cough Cardiovascular: Reports: No Symptoms. Denies: Chest Pain Gastrointestinal: Reports: No symptoms. Denies: Abdominal pain Genitourinary: Reports: no symptoms Musculoskeletal: Reports: shoulder pain (rt) Neurological: Reports: No Symptoms. Denies: Confusion Psychiatric: Reports: no symptoms. Denies: confusion - Patient Data Vitals - most recent: Last Vital Signs Temp 97.2 F 01/23/17 07:41 Pulse 62 01/23/17 09:18 Resp 16 01/23/17 07:41 BP 136/51 L 01/23/17 09:19 Pulse Ox 99 01/23/17 07:41 Weight - most recent: 155 lb 6.4 oz I&O - last 24 hours: Intake & Output 01/22/17 01/23/17 01/23/17 22:59 06:59 14:59 Intake Total 1122 500 Output Total 800 1700 Balance 322 -1200 Lab Results last 24 hrs: Laboratory Results - last 24 hr 01/23/17 01/23/17 Range/Units 09:10 09:10 WBC 6.73 (3.98-10.04) K/mm3 RBC 4.28 (3.98-5.22) M/mm3 Hgb 12.1 (11.2-15.7) gm/L Hct 34.8 (34.1-44.9) % MCV 81.3 (79.4-94.8) fl MCH 28.3 (25.6-32.2) pg MCHC 34.8 (32.2-35.5) g/dl RDW Std Deviation 45.8 (36.4-46.3) fL Plt Count 354 (182-369) K/mm3 MPV 9.1 L (9.4-12.3) fl Neut % (Auto) 73.9 H (34.0-71.1) % Lymph % (Auto) 15.9 L (19.3-51.7) % [place] % (Auto) 6.8 (4.7-12.5) % Eos % (Auto) 3.1 (0.7-5.8) Baso % (Auto) 0.3 (0.1-1.2) % Neut # (Auto) 4.97 (1.56-6.13) K/mm3 Lymph # (Auto) 1.07 L (1.18-3.74) K/mm3 [place] # (Auto) 0.46 H (0.24-0.36) K/mm3 Eos # (Auto) 0.21 (0.04-0.36) K/mm3 Baso # (Auto) 0.02 (0.01-0.08) K/mm3 Sodium 127 L (136-145) mEq/L Potassium 3.7 (3.5-5.1) mEq/L Chloride 94 L (98-107) mEq/L Carbon Dioxide 24 (21-32) mEq/L Anion Gap 12.7 (5-15) BUN 13 (7-18) mg/dL Creatinine 0.8 (0.55-1.02) mg/dL Est Cr Clr Drug Dosing 43.59 mL/min Estimated GFR (MDRD) > 60 (>60) mL/min BUN/Creatinine Ratio 16.3 (14-18) Glucose 106 (83-115) mg/dL Calcium 8.5 (8.5-10.1) mg/dL Magnesium 1.8 (1.8-2.4) mg/dl Med Orders - Current: Current Medications Acetaminophen (Tylenol) 650 mg PO Q4H PRN PRN Reason: Pain (Mild 1-3)/fever Hydrocodone Bitart/Acetaminophen ([place] 325-5 Mg) 1 tab PO Q4H PRN PRN Reason: Pain (moderate 4-6) Last Admin: 01/23/17 09:15 Dose: 1 tab Albuterol/Ipratropium (Duoneb 3.0-0.5 Mg/3 Ml) 3 ml NEB Q4H PRN PRN Reason: Shortness Of Breath/wheezing Amlodipine Besylate (Norvasc) 5 mg PO DAILY [facility] Last Admin: 01/23/17 09:18 Dose: 5 mg Aspirin (Aspirin) 81 mg PO DAILY [facility] Last Admin: 01/23/17 09:14 Dose: 81 mg Bisacodyl (Dulcolax) 5 mg PO DAILY PRN PRN Reason: Constipation Calcitriol (Rocaltrol) 0.25 mcg PO DAILY [facility] Last Admin: 01/23/17 09:15 Dose: 0.25 mcg Carvedilol (Coreg) 12.5 mg PO BID [facility] Last Admin: 01/23/17 09:18 Dose: 12.5 mg Dronabinol (Marinol) 2.5 mg PO TIDAC [facility] Last Admin: 01/23/17 06:46 Dose: 2.5 mg Hydralazine HCl (Apresoline) 10 mg IVPUSH Q4H PRN PRN Reason: Hypertension Last Admin: 01/23/17 04:06 Dose: 10 mg Hydrochlorothiazide (Hydrochlorothiazide) 25 mg PO DAILY [facility] Last Admin: 01/23/17 09:19 Dose: 25 mg Hydromorphone HCl (Dilaudid) 0.25 mg IVPUSH Q2H PRN PRN Reason: Pain (severe 7-10) Last Admin: 01/22/17 15:50 Dose: 0.25 mg Promethazine HCl 12.5 mg/ (Sodium Chloride) 50.5 mls @ 100 mls/hr IV Q6H PRN PRN Reason: Nausea/Vomiting Magnesium Sulfate 2 gm/ Premix 50 mls @ 25 mls/hr IV ONETIME ONE Stop: 01/23/17 10:13 Last Admin: 01/23/17 09:20 Dose: 25 mls/hr Lorazepam (Ativan) 0.25 mg IV Q6H PRN PRN Reason: Anxiety Losartan Potassium (Cozaar) 100 mg PO DAILY [facility] Last Admin: 01/23/17 09:19 Dose: 100 mg Magnesium Oxide (Magnesium Oxide) 400 mg PO DAILY [facility] Last Admin: 01/23/17 09:16 Dose: 400 mg Magnesium Sulfate (Pharmacy To Dose - Magnesium Replacement) 1 dose .XX ASDIRECTED [facility] Meclizine HCl (Antivert) 25 mg PO Q6H PRN PRN Reason: Dizziness Last Admin: 01/21/17 08:36 Dose: 25 mg Methocarbamol (Robaxin) 500 mg PO ONETIME ONE Stop: 01/23/17 09:47 Methocarbamol (Robaxin) 500 mg PO Q6H PRN PRN Reason: muscle spasms/shouler pain Metoprolol Tartrate (Lopressor) 5 mg IVPUSH Q4H PRN PRN Reason: Tachycardia Ondansetron HCl (Zofran) 4 mg IV Q6H PRN PRN Reason: Nausea/Vomiting Oral Electrolytes (Thermotabs) 1 each PO TID [facility] Last Admin: 01/23/17 09:15 Dose: 1 each Pantoprazole Sodium (Protonix) 40 mg PO DAILY [facility] Last Admin: 01/23/17 09:15 Dose: 40 mg Polyethylene Glycol (Miralax) 17 gm PO DAILY PRN PRN Reason: Constipation Potassium Chloride (Pharmacy To Dose - Potassium Replacement) 1 dose .XX ASDIRECTED [facility] Senna/Docusate Sodium (Senna Plus) 1 tab PO BID PRN PRN Reason: Constipation Simvastatin (Zocor) 20 mg PO BEDTIME [facility] Last Admin: 01/22/17 20:14 Dose: 20 mg Temazepam (Restoril) 7.5 mg PO BEDTIME PRN PRN Reason: Sleep Discontinued Medications Atenolol (Tenormin) 25 mg PO DAILY [facility] Last Admin: 01/22/17 09:02 Dose: Not Given Sodium Chloride (Normal Saline) 1,000 mls @ 150 mls/hr IV ASDIRECTED [facility] Last Admin: 01/22/17 08:50 Dose: 150 mls/hr Magnesium Sulfate (Magnesium Sulfate 2 Gm In Water 50 Ml) 50 mls @ 50 mls/hr IV ONETIME ONE Stop: 01/22/17 17:29 Last Admin: 01/22/17 16:37 Dose: 50 mls/hr Magnesium Sulfate (Magnesium Sulfate 2 Gm In Water 50 Ml) Confirm Administered Dose 50 mls @ as directed .ROUTE .STK-MED ONE Stop: 01/23/17 09:03 Last Admin: 01/23/17 09:25 Dose: Not Given Magnesium Oxide [ (Magnesium] 500mg) 500 mg PO DAILY [facility] Pneumococcal Polyvalent Vaccine (Pneumovax 23) 0.5 ml SUBCUT .ONCE ONE Stop: 06/12/17 08:25 Scopolamine (Transderm-Scop) 1.5 mg TOP ONETIME ONE Stop: 01/20/17 17:30 Last Admin: 01/20/17 21:17 Dose: 1.5 mg Scopolamine (Transderm-Scop) 1.5 mg TOP ONETIME ONE Stop: 01/20/17 21:06 Last Admin: 01/20/17 23:39 Dose: Not Given Temazepam (Restoril) 7.5 mg PO BEDTIME PRN PRN Reason: Sleep - Exam Quality Assessment: DVT prophylaxis General: alert, oriented, cooperative, no acute distress HEENT: Pupils equal, Pupils reactive, EOMI, Mucous membr. moist/pink Neck: supple Lungs: Clear to auscultation, Normal respiratory effort Cardiovascular: Regular Rate, Regular Rhythm Abdomen: bowel sounds present, soft, no tenderness, no distension (Female) Exam: Deferred Extremities: no edema, no calf tenderness, other (rt shoulder with pain diffusely with any ROM) Peripheral Pulses: 1+: Dorsalis Pedis (L), Dorsalis Pedis (R), 2+: Radial (L), Radial (R) Neurological: no new focal deficit Psy/Mental Status: alert, normal affect, normal mood - Problem List & Annotations (1) Dehydration with hyponatremia SNOMED Code(s): 54302917 Code(s): E87.1 - HYPO-OSMOLALITY AND HYPONATREMIA Status: Acute Priority : High Current Visit: Yes (2) Hypomagnesemia SNOMED Code(s): 980418623 Code(s): E83.42 - HYPOMAGNESEMIA Status: Acute Priority: High Current Visit: Yes (3) Shoulder pain, right SNOMED Code(s): 92432948, 72524396 Code(s): M25.511 - PAIN IN RIGHT SHOULDER Status: Acute Priority: High Current Visit: Yes Qualifiers: Chronicity: acute Qualified Code(s): M25.511 - Pain in right shoulder (4) Vertigo SNOMED Code(s): 476815963 Code(s): R42 - DIZZINESS AND GIDDINESS Status: Resolved Priority: High Current Visit: Yes (5) Hypertension SNOMED Code(s): 04321137 Code(s): I10 - ESSENTIAL (PRIMARY) HYPERTENSION Status: Chronic Priority : High Current Visit: Yes Qualifiers: Hypertension type: essential hypertension Qualified Code(s): I10 - Essential (primary) hypertension Annotation/Comment:: acute on chronic (6) Compression fracture of body of thoracic vertebra SNOMED Code(s): 903109125 Code(s): M48.54XA - COLLAPSED VERTEBRA, NEC, THORACIC REGION, INIT Status: Acute Priority: High Current Visit: Yes - Problem List Review Problem List Initiated/Reviewed/Updated: Yes - My Orders Last 24 Hours: My Active Orders 01/23/17 08:14 Magnesium Sulfate/Water [Magnesium Sulfate 2 GM in Water 50 ML] 2 gm Premix Bag 1 bag IV ONETIME 01/23/17 09:00 amLODIPine [Norvasc] 5 mg PO DAILY 01/23/17 09:42 Shoulder Comp Rt [CR] Routine 01/23/17 09:46 Methocarbamol [Robaxin] 500 mg PO ONETIME ONE Methocarbamol [Robaxin] 500 mg PO Q6H PRN 01/23/17 Lunch Heart Healthy Diet [DIET] - Plan Plan:: Assessment/Plan: Acute: Hyponatremia, now Asymptomatic - Na is 119 (132 last week per document), 131-->128 today - She is not on SSRIs/SNRIs - Her oral intake has now picked up - Salt tablet 1 tab po TID - NS infusion today - Hold HCTZ - Routine BMP Hypomagnesemia -Replace and cont to follow daily labs Right shoulder pain -s/p fall at home -Xray of rt shoulder today -robaxin, muscle relaxant now and TID PRN. Generalized Weakness, Improved - TFT Low-normal TSH and Elevated FT4-suggestive of Hyperthyroidism - Vit D level pending - Continue PT/OT Dizziness/Vertigo, still lingers--improving - Has Hx/o Sensorineural Hearing Loss - Currently being worked on by Dr. Alas - PT for vestibular eval scheduled for Monday - PRN meds for symptomatic control - Defer to Dr. Alas outpatient once discharge for further eval Sinus Bradycardia - On EKG form the clinic it shows a HR of 55 and 1st Degree AV Block - She is not on CCB or BB - Repeat EKG this AM: Sinus Bradycardia with 1st Degree AVB - Telemetry to monitor - D/c'd atenolol and start coreg 12.5 mg po BID first dose tonight Compression fx in thoracic vertebra -S/P recent fall -Eval in [place] during hospitalization recently; will obtain records for review -Query if surgical candidate for kyphoplasty Abnormal TFT - Result suggestive of Hyperthyroidism - Will check for T3 level - Consider outpatient for any further work up Resolved: Hx/o Hypotension - Current BP is 135/63 mmHg S/p Poor Appetite - Marinol 2.5 mg po 15-20 mins before each meal - Can have anything she wants to eat - She is no eating as usual Chronic: HTN HLD Cough Hx/o Sensorineural Hearing Loss Back Pain Hypocalcemia and Hypomagnesemia Hx/o Pancreatic Cyst Pulmonary Nodules T2 Vertebral Fracture Thoracic Aneurysm Renal Mass Plan: She continues to improve clinically Continue current treatment Routine AM Labs Fall and Seizure Precautions Continue PT/OT SW/CM for d/c planning Code status: 1 Patient lives on her own. She may not do well if her vestibular dysfunction and weakness persists. Will have SW/CM take a look at her home status.
[2017-01-23] MEDS: Sodium Chloride 0.9% 1,000 ML IV SCH (11:32)
--- NOTE | 2017-01-23 13:02 | CR ---
Right shoulder: Three views of the right shoulder were obtained. Comparison: No previous study. Calcifications are seen lateral to the shoulder believed to be dystrophic. Joint space narrowing is seen within the acromioclavicular joint. Minimal inferior spurring is noted off the glenohumeral joint. Nothing acute is seen. Impression: 1. Soft tissue calcifications presumably dystrophic off the lateral shoulder. 2. Mild degenerative change as described above. Diagnostic code #3
[2017-01-23] MEDS ORDERED: oxyCODONE 5 MG Tab PO ONE (13:44)
[2017-01-23] MEDS ORDERED: Methocarbamol 500 MG Tab PO PRN (15:00)
[2017-01-23] MEDS: Simvastatin 20 MG Tab PO SCH (21:30)
[2017-01-23] MEDS: oxyCODONE 5 MG Tab PO SCH (21:34)
[2017-01-24] MEDS: Acetaminophen/HYDROcodone 325-5 MG Tab PO PRN ×3 (03:13→18:53)
[2017-01-24] MEDS: Sodium Chloride 0.9% 1,000 ML IV SCH (03:18)
[2017-01-24] MEDS ORDERED: cefTRIAXone 1,000 MG VIAL IVPUSH SCH (06:30)
[2017-01-24] MEDS: cefTRIAXone 1 GM in Sodium Chloride 0.9% 100 ML IV SCH (06:46)
[2017-01-24] MEDS: Dronabinol 2.5 MG Cap PO SCH ×3 (06:47→16:12)
[2017-01-24] MEDS ORDERED: Magnesium Sulfate/Water 2 GM in Premix Bag 1 BAG IV ONE (08:00)
[2017-01-24] MEDS: Potassium Chloride/Sodium Chloride Tab PO SCH ×4 (08:35→21:34)
[2017-01-24] MEDS: amLODIPine 5 MG Tab PO SCH (08:36)
[2017-01-24] MEDS: Cholecalciferol (Vitamin D3) 1,000 Unit Tab PO SCH (08:36)
[2017-01-24] MEDS: Magnesium Oxide 400 MG Tab PO SCH (08:36)
[2017-01-24] MEDS: Aspirin 81 MG Tab.Chew PO SCH (08:36)
[2017-01-24] MEDS: Calcitriol 0.25 MCG Cap PO SCH (08:38)
[2017-01-24] MEDS: Losartan 100 MG Tab PO SCH (08:38)
[2017-01-24] MEDS: oxyCODONE 5 MG Tab PO SCH ×2 (08:38→21:33)
[2017-01-24] MEDS: Pantoprazole 40 MG Tab.CR PO SCH (08:39)
[2017-01-24] MEDS: Carvedilol 12.5 MG Tab PO SCH ×2 (08:39→21:33)
[2017-01-24] MEDS: Hydrochlorothiazide 25 MG Tab PO SCH (08:39)
[2017-01-24] MEDS: Acetaminophen 325 MG Tab PO PRN (12:47)
[2017-01-24] MEDS ORDERED: fentaNYL 12 MCG/HR Transdermal Patch TRDERM SCH (15:00)
[2017-01-24] MEDS: Lidocaine 5% 700 MG Patch TOP SCH (15:12)
--- NOTE | 2017-01-24 15:52 | PCM.PN ---
- General Info Date of Service: 01/24/17 Admission Dx/Problem (Free Text): Hyponatremia Aida is seen this morning; pleasant and orientated. Back pain is slightly improved today, shoulder pain also slightly improved Denies CP, SOB, abd pain. No neuropathy or radiculopathy findings or symptoms today. Functional Status: Reports: tolerating diet (eating improved slightly), ambulating, urinating - Review of Systems General: Reports: Weakness HEENT: Reports: headaches, other (dizziness with position changes). Denies: visual changes Pulmonary: Reports: no symptoms Cardiovascular: Reports: No Symptoms Gastrointestinal: Reports: No symptoms Genitourinary: Reports: no symptoms Musculoskeletal: Reports: neck pain, shoulder pain, back pain Neurological: Reports: Dizziness, Headache, Other (difficulty with swallowing pills today). Denies: Numbness, Paresthesia, Tingling, Trouble Speaking Psychiatric: Reports: no symptoms - Patient Data Vitals - most recent: Last Vital Signs Temp 97.5 F 01/24/17 12:51 Pulse 57 L 01/24/17 12:51 Resp 18 01/24/17 12:51 BP 113/45 L 01/24/17 12:51 Pulse Ox 97 01/24/17 12:51 Weight - most recent: 158 lb 12.8 oz I&O - last 24 hours: Intake & Output 01/24/17 01/24/17 01/24/17 06:59 14:59 22:59 Intake Total 1392 30 Output Total 1050 Balance 342 30 Lab Results last 24 hrs: Laboratory Results - last 24 hr 01/21/17 01/22/17 01/23/17 Range/Units 06:00 06:00 16:00 Sodium 126 L (136-145) mEq/L Potassium (3.5-5.1) mEq/L Chloride (98-107) mEq/L Carbon Dioxide (21-32) mEq/L Anion Gap (5-15) BUN (7-18) mg/dL Creatinine (0.55-1.02) mg/dL Est Cr Clr Drug Dosing mL/min Estimated GFR (MDRD) (>60) mL/min BUN/Creatinine Ratio (14-18) Glucose (83-115) mg/dL Calcium (8.5-10.1) mg/dL Magnesium (1.8-2.4) mg/dl Vitamin D 25-Hydroxy 28 L (30-100) ng/mL Total T3 74 L (87-178) ng/dL Urine Color (Yellow) Urine Appearance (Clear) Urine pH (5.0-8.0) Ur Specific [place] (1.005-1.030) Urine Protein (Negative) Urine Glucose (UA) (Negative) Urine Ketones (Negative) Urine Occult Blood (Negative) Urine Nitrite (Negative) Urine Bilirubin (Negative) Urine Urobilinogen (0.2-1.0) Ur Leukocyte Esterase (Negative) Urine RBC (0-5) /hpf Urine WBC (0-5) /hpf Urine WBC Clumps (NOT SEEN) /hpf Ur Epithelial Cells (0-5) /hpf Amorphous Sediment (NOT SEEN) /hpf Urine Bacteria (FEW) /hpf Urine Mucus (FEW) /hpf Urine Osmolality (400-1100) mosm/kg Ur Random Sodium (40-220) mEq/L 01/24/17 01/24/17 01/24/17 Range/Units 03:15 03:15 03:15 Sodium 127 L (136-145) mEq/L Potassium (3.5-5.1) mEq/L Chloride (98-107) mEq/L Carbon Dioxide (21-32) mEq/L Anion Gap (5-15) BUN (7-18) mg/dL Creatinine (0.55-1.02) mg/dL Est Cr Clr Drug Dosing mL/min Estimated GFR (MDRD) (>60) mL/min BUN/Creatinine Ratio (14-18) Glucose (83-115) mg/dL Calcium (8.5-10.1) mg/dL Magnesium (1.8-2.4) mg/dl Vitamin D 25-Hydroxy (30-100) ng/mL Total T3 (87-178) ng/dL Urine Color Green H (Yellow) Urine Appearance Slt cloudy H (Clear) Urine pH 6.0 (5.0-8.0) Ur Specific [place] 1.020 (1.005-1.030) Urine Protein Negative (Negative) Urine Glucose (UA) Negative (Negative) Urine Ketones Negative (Negative) Urine Occult Blood Negative (Negative) Urine Nitrite Negative (Negative) Urine Bilirubin Negative (Negative) Urine Urobilinogen 0.2 (0.2-1.0) Ur Leukocyte Esterase 2+ H (Negative) Urine RBC 0-5 (0-5) /hpf Urine WBC 10-20 H (0-5) /hpf Urine WBC Clumps Rare (NOT SEEN) /hpf Ur Epithelial Cells 0-5 (0-5) /hpf Amorphous Sediment Few H (NOT SEEN) /hpf Urine Bacteria Moderate H (FEW) /hpf Urine Mucus Not seen (FEW) /hpf Urine Osmolality 416 (400-1100) mosm/kg Ur Random Sodium (40-220) mEq/L 01/24/17 01/24/17 Range/Units 03:15 06:11 Sodium 127 L (136-145) mEq/L Potassium 3.9 (3.5-5.1) mEq/L Chloride 95 L (98-107) mEq/L Carbon Dioxide 23 (21-32) mEq/L Anion Gap 12.9 (5-15) BUN 12 (7-18) mg/dL Creatinine 0.6 (0.55-1.02) mg/dL Est Cr Clr Drug Dosing 58.12 mL/min Estimated GFR (MDRD) > 60 (>60) mL/min BUN/Creatinine Ratio 20.0 H (14-18) Glucose 93 (83-115) mg/dL Calcium 8.1 L (8.5-10.1) mg/dL Magnesium 1.7 L (1.8-2.4) mg/dl Vitamin D 25-Hydroxy (30-100) ng/mL Total T3 (87-178) ng/dL Urine Color (Yellow) Urine Appearance (Clear) Urine pH (5.0-8.0) Ur Specific [place] (1.005-1.030) Urine Protein (Negative) Urine Glucose (UA) (Negative) Urine Ketones (Negative) Urine Occult Blood (Negative) Urine Nitrite (Negative) Urine Bilirubin (Negative) Urine Urobilinogen (0.2-1.0) Ur Leukocyte Esterase (Negative) Urine RBC (0-5) /hpf Urine WBC (0-5) /hpf Urine WBC Clumps (NOT SEEN) /hpf Ur Epithelial Cells (0-5) /hpf Amorphous Sediment (NOT SEEN) /hpf Urine Bacteria (FEW) /hpf Urine Mucus (FEW) /hpf Urine Osmolality (400-1100) mosm/kg Ur Random Sodium 115 (40-220) mEq/L Med Orders - Current: Current Medications Acetaminophen (Tylenol) 650 mg PO Q4H PRN PRN Reason: Pain (Mild 1-3)/fever Last Admin: 01/24/17 12:47 Dose: 650 mg Hydrocodone Bitart/Acetaminophen (Eleele 325-5 Mg) 1 tab PO Q4H PRN PRN Reason: Pain (moderate 4-6) Last Admin: 01/24/17 12:47 Dose: 1 tab Albuterol/Ipratropium (Duoneb 3.0-0.5 Mg/3 Ml) 3 ml NEB Q4H PRN PRN Reason: Shortness Of Breath/wheezing Amlodipine Besylate (Norvasc) 5 mg PO DAILY [facility] Last Admin: 01/24/17 08:36 Dose: 5 mg Aspirin (Aspirin) 81 mg PO DAILY [facility] Last Admin: 01/24/17 08:36 Dose: 81 mg Bisacodyl (Dulcolax) 5 mg PO DAILY PRN PRN Reason: Constipation Calcitriol (Rocaltrol) 0.25 mcg PO DAILY [facility] Last Admin: 01/24/17 08:38 Dose: 0.25 mcg Carvedilol (Coreg) 12.5 mg PO BID [facility] Last Admin: 01/24/17 08:39 Dose: 12.5 mg Cholecalciferol (Vitamin D3) 5,000 units PO DAILY [facility] Last Admin: 01/24/17 08:36 Dose: 5,000 units Dronabinol (Marinol) 2.5 mg PO TIDAC [facility] Last Admin: 01/24/17 10:43 Dose: 2.5 mg Fentanyl (Duragesic) 12 mcg TRDERM Q72H [facility] Hydralazine HCl (Apresoline) 10 mg IVPUSH Q4H PRN PRN Reason: Hypertension Last Admin: 01/23/17 04:06 Dose: 10 mg Hydromorphone HCl (Dilaudid) 0.25 mg IVPUSH Q2H PRN PRN Reason: Pain (severe 7-10) Last Admin: 01/22/17 15:50 Dose: 0.25 mg Promethazine HCl 12.5 mg/ (Sodium Chloride) 50.5 mls @ 100 mls/hr IV Q6H PRN PRN Reason: Nausea/Vomiting Ceftriaxone Sodium 1 gm/ (Sodium Chloride) 100 mls @ 200 mls/hr IV Q24H [facility] Last Admin: 01/24/17 06:46 Dose: 200 mls/hr Lidocaine (Lidoderm 5%) 700 mg TOP Q24H [facility] Lorazepam (Ativan) 0.25 mg IV Q6H PRN PRN Reason: Anxiety Losartan Potassium (Cozaar) 100 mg PO DAILY [facility] Last Admin: 01/24/17 08:38 Dose: 100 mg Magnesium Oxide (Magnesium Oxide) 400 mg PO DAILY [facility] Last Admin: 01/24/17 08:36 Dose: 400 mg Magnesium Sulfate (Pharmacy To Dose - Magnesium Replacement) 1 dose .XX ASDIRECTED [facility] Meclizine HCl (Antivert) 25 mg PO Q6H PRN PRN Reason: Dizziness Last Admin: 01/21/17 08:36 Dose: 25 mg Methocarbamol (Robaxin) 500 mg PO Q6H PRN PRN Reason: muscle spasms/shouler pain Metoprolol Tartrate (Lopressor) 5 mg IVPUSH Q4H PRN PRN Reason: Tachycardia Miscellaneous Information (Remove Patch) 0 ea TRDERM Q24H [facility] Miscellaneous Information (Remove Patch) 0 ea TRDERM Q72H [facility] Ondansetron HCl (Zofran) 4 mg IV Q6H PRN PRN Reason: Nausea/Vomiting Oral Electrolytes (Thermotabs) 2 each PO TID [facility] Last Admin: 01/24/17 14:13 Dose: 2 each Oxycodone HCl (Oxycodone) 5 mg PO BID [facility] Last Admin: 01/24/17 08:38 Dose: 5 mg Pantoprazole Sodium (Protonix) 40 mg PO DAILY [facility] Last Admin: 01/24/17 08:39 Dose: 40 mg Polyethylene Glycol (Miralax) 17 gm PO DAILY PRN PRN Reason: Constipation Potassium Chloride (Pharmacy To Dose - Potassium Replacement) 1 dose .XX ASDIRECTED [facility] Senna/Docusate Sodium (Senna Plus) 1 tab PO BID PRN PRN Reason: Constipation Simvastatin (Zocor) 20 mg PO BEDTIME [facility] Last Admin: 01/23/17 21:30 Dose: 20 mg Temazepam (Restoril) 7.5 mg PO BEDTIME PRN PRN Reason: Sleep Discontinued Medications Atenolol (Tenormin) 25 mg PO DAILY [facility] Last Admin: 01/22/17 09:02 Dose: Not Given Ceftriaxone Sodium (Rocephin) 1,000 mg IVPUSH Q24H [facility] Last Admin: 01/24/17 07:34 Dose: Not Given Hydrochlorothiazide (Hydrochlorothiazide) 25 mg PO DAILY [facility] Last Admin: 01/24/17 08:39 Dose: 25 mg Sodium Chloride (Normal Saline) 1,000 mls @ 150 mls/hr IV ASDIRECTED [facility] Last Admin: 01/22/17 08:50 Dose: 150 mls/hr Magnesium Sulfate (Magnesium Sulfate 2 Gm In Water 50 Ml) 50 mls @ 50 mls/hr IV ONETIME ONE Stop: 01/22/17 17:29 Last Admin: 01/22/17 16:37 Dose: 50 mls/hr Magnesium Sulfate 2 gm/ Premix 50 mls @ 25 mls/hr IV ONETIME ONE Stop: 01/23/17 10:13 Last Admin: 01/23/17 09:20 Dose: 25 mls/hr Magnesium Sulfate (Magnesium Sulfate 2 Gm In Water 50 Ml) Confirm Administered Dose 50 mls @ as directed .ROUTE .STK-MED ONE Stop: 01/23/17 09:03 Last Admin: 01/23/17 09:25 Dose: Not Given Sodium Chloride (Normal Saline) 1,000 mls @ 75 mls/hr IV ASDIRECTED [facility] Last Admin: 01/24/17 03:18 Dose: 75 mls/hr Magnesium Sulfate 2 gm/ Premix 50 mls @ 25 mls/hr IV ONETIME ONE Stop: 01/24/17 09:59 Last Admin: 01/24/17 08:33 Dose: 25 mls/hr Methocarbamol (Robaxin) 500 mg PO ONETIME ONE Stop: 01/23/17 09:47 Last Admin: 01/23/17 10:14 Dose: 500 mg Magnesium Oxide [ (Magnesium] 500mg) 500 mg PO DAILY [facility] Oral Electrolytes (Thermotabs) 1 each PO TID [facility] Last Admin: 01/24/17 08:35 Dose: 1 each Oxycodone HCl (Oxycodone) 5 mg PO ONETIME ONE Stop: 01/23/17 13:45 Last Admin: 01/23/17 14:02 Dose: 5 mg Pneumococcal Polyvalent Vaccine (Pneumovax 23) 0.5 ml SUBCUT .ONCE ONE Stop: 01/23/17 08:25 Scopolamine (Transderm-Scop) 1.5 mg TOP ONETIME ONE Stop: 01/20/17 17:30 Last Admin: 01/20/17 21:17 Dose: 1.5 mg Scopolamine (Transderm-Scop) 1.5 mg TOP ONETIME ONE Stop: 01/20/17 21:06 Last Admin: 01/20/17 23:39 Dose: Not Given Simvastatin (Zocor) 20 mg PO BEDTIME [facility] Last Admin: 01/22/17 20:14 Dose: 20 mg Temazepam (Restoril) 7.5 mg PO BEDTIME PRN PRN Reason: Sleep - Exam Quality Assessment: DVT prophylaxis General: alert, oriented, cooperative, no acute distress HEENT: Pupils equal, Pupils reactive, EOMI, Mucous membr. moist/pink Neck: supple Lungs: Clear to auscultation, Normal respiratory effort, Decreased breath sounds (bases bilat) Cardiovascular: Regular Rate, Regular Rhythm Abdomen: bowel sounds present, soft, no tenderness, abnormal bowel sounds (Female) Exam: Deferred Extremities: no edema, no calf tenderness Peripheral Pulses: 1+: Dorsalis Pedis (L), Dorsalis Pedis (R) Skin: warm, dry, intact Neurological: no new focal deficit, normal speech, normal tone, strength equal bilateral, cranial nerves intact Psy/Mental Status: alert, normal affect, normal mood - Problem List & Annotations (1) Dehydration with hyponatremia SNOMED Code(s): 59752647 Code(s): E87.1 - HYPO-OSMOLALITY AND HYPONATREMIA Status: Acute Priority : High Current Visit: Yes (2) Hypomagnesemia SNOMED Code(s): 280923641 Code(s): E83.42 - HYPOMAGNESEMIA Status: Acute Priority: High Current Visit: Yes (3) Shoulder pain, right SNOMED Code(s): 67742418, 23608248 Code(s): M25.511 - PAIN IN RIGHT SHOULDER Status: Acute Priority: High Current Visit: Yes Qualifiers: Chronicity: acute Qualified Code(s): M25.511 - Pain in right shoulder (4) Vertigo SNOMED Code(s): 903793327 Code(s): R42 - DIZZINESS AND GIDDINESS Status: Resolved Priority: High Current Visit: Yes (5) Hypertension SNOMED Code(s): 09433149 Code(s): I10 - ESSENTIAL (PRIMARY) HYPERTENSION Status: Chronic Priority : High Current Visit: Yes Qualifiers: Hypertension type: essential hypertension Qualified Code(s): I10 - Essential (primary) hypertension Annotation/Comment:: acute on chronic (6) Compression fracture of body of thoracic vertebra SNOMED Code(s): 871642679 Code(s): M48.54XA - COLLAPSED VERTEBRA, NEC, THORACIC REGION, INIT Status: Acute Priority: High Current Visit: Yes - Problem List Review Problem List Initiated/Reviewed/Updated: Yes - My Orders Last 24 Hours: My Active Orders 01/23/17 15:00 Methocarbamol [Robaxin] 500 mg PO Q6H PRN 01/23/17 21:00 oxyCODONE 5 mg PO BID 01/24/17 03:15 OSMOLALITY,SERUM [CHEM] Routine SODIUM,NA [CHEM] Routine 01/24/17 06:00 cefTRIAXone [Rocephin] 1 gm Sodium Chloride 0.9% [Normal Saline] 100 ml IV Q24H 01/24/17 09:00 Cholecalciferol (Vitamin D3) [Vitamin D3] 5,000 units PO DAILY Potassium Chloride/NaCl [Thermotabs] 2 each PO TID 01/24/17 15:00 C Collar Applied [Spinal Immobilization] [RC] ASDIRECTED Lidocaine 5% [Lidoderm 5%] 700 mg TOP Q24H fentaNYL [Duragesic] 12 mcg TRDERM Q72H 01/24/17 15:12 Carotid Comp [US] Routine 01/24/17 Dinner Regular Diet [DIET] 01/25/17 05:11 BASIC METABOLIC PANEL,BMP [CHEM] AM CBC WITH AUTO DIFF [HEME] AM - Plan Plan:: Assessment/Plan: Acute: Hyponatremia - Na 119 at clinic, 120 on admit (132 last week per document, 136 in ER in [place] on 01/07/17), 131-->128 -->126 today - She is not on SSRIs/SNRIs - Her oral intake has now picked up - Salt tablet, increase to 2 tab po TID - NS infusion - Hold HCTZ - Routine BMP to follow Hypomagnesemia -Replace and cont to follow daily labs Compression fx T2 thoracic vertebra -S/P recent fall on 01/07/17 -Eval in [place] during hospitalization recently; will obtain records for review--CT reports from 01/07/17 show "acute mid anterior wedging compression fracture at T2, no retropulsion. No extension into posterior elements". -Query if surgical candidate for kyphoplasty---discussed with Dr. Hsu, T2 is not amendable to kyphoplasty. Recommends soft cervical collar, muscle relaxant, heat/ice and pain management. Added fentanyl patch today to current regimen along with lidocaine patch. Right shoulder pain; believe this is sequela of T2 compression fx -s/p fall at home -Xray of rt shoulder today -robaxin, muscle relaxant now and TID PRN. - Spoke with Dr. Hsu re compression fx---see blow AUTI -UC pending -Rocephin IV Q24 hours Generalized Weakness, Improved - TFT Low-normal TSH and Elevated FT4-suggestive of Hyperthyroidism; T3 elevated at 74 also suggestive of hyperthyroidism - Vit D level is low; supplement with vit D3 5,000 IU daily - Continue PT/OT Dizziness/Vertigo --improving - Has Hx/o Sensorineural Hearing Loss - Currently being worked on by Dr. Alas - PT for vestibular eval scheduled for Monday - PRN meds for symptomatic control - Defer to Dr. Alas outpatient once discharge for further eval -Patient has had prior outpatient workup including MRI of brain without contrast and CT of brain without contrast on 01/20/17, both unremarkable for acute findings. Prior echo done 04/2016 with EF of 65%, grade 1 diastolic dysfunction- unchanged from 05/05/15 -No carotid evaluation has been done as of yet; will order Sinus Bradycardia---Resolved or unchanged--stable - On EKG form the clinic it shows a HR of 55 and 1st Degree AV Block - Repeat EKG: Sinus Bradycardia with 1st Degree AVB - Telemetry to monitor--no acute changes - D/c'd atenolol and start coreg 12.5 mg po BID first dose tonight Abnormal TFT--low normal TSH with elevated T4 - Result suggestive of Hyperthyroidism - T3 also elevated at 74, suggestive of hyperthyroidism - Consider outpatient work up and/or follow up thyroid studies 3 months to follow Resolved: Hx/o Hypotension on admit S/p Poor Appetite - Marinol 2.5 mg po 15-20 mins before each meal - Can have anything she wants to eat - Appetite slowly improving Chronic: HTN HLD Hx/o Sensorineural Hearing Loss Chronic Back Pain Hypocalcemia and Hypomagnesemia by hx Hx/o Pancreatic Cyst Pulmonary Nodules T2 Vertebral Fracture--acute as above Renal Mass Other: Routine AM Labs Fall and Seizure Precautions Continue PT/OT DVT/GI prophylax SW/CM for d/c planning -Patient lives on her own at [facility]. Therapies recommending SNF rehab stay at this time, family also agrees as they have been with her for last 9+ days, caring for her--requires 24hour care at this time due to pain in her back/ shoulders, assistance with mobility. SW arranging SNF placement at this time. CM to arrange Neurosurgery or forestry extension specialist eval as outpatient prior to discharge. Patient is Full Code status
--- NOTE | 2017-01-24 16:18 | US ---
Carotid ultrasound: Duplex and color flow imaging was obtained of the carotid arteries. Comparison: Previous carotid ultrasound exam of 06/22/09. Mild amount of diffuse plaque is seen on both sides. Plaque has slightly increased in amount from previous exam. Velocity measurements Right side: CCA has a peak systolic velocity is 0.58 m/s. ICA has a peak systolic velocity of 0.89 m/s and peak end-diastolic velocity is 0.15 m/s. ECA has a peak systolic velocity of 1.12 m/s. Vertebral artery has a peak systolic velocity of 0.56 m/s. ICA/CCA ratio is 1.5. Left side: CCA has a peak systolic velocity of 0.61 m/s. ICA has a peak systolic velocity of 0.92 m/s and peak end-diastolic velocity of 0.22 m/s. ECA has a peak systolic velocity of 1.22 m/s. Vertebral artery has a peak systolic velocity of 0.57 m/s. Impression: 1. Mild amount of plaque. The amount of plaque has slightly increased in amount from previous exam. 2. Velocity measurements within both internal carotid arteries correspond to stenosis in the range of 1-49%. Diagnostic code #2
[2017-01-24] MEDS: Temazepam 7.5 MG Cap PO PRN (21:34)
[2017-01-24] MEDS: Simvastatin 20 MG Tab PO SCH (21:34)
[2017-01-25] MEDS: Acetaminophen/HYDROcodone 325-5 MG Tab PO PRN ×3 (02:04→20:56)
[2017-01-25] MEDS: Dronabinol 2.5 MG Cap PO SCH ×3 (06:13→16:26)
[2017-01-25] MEDS: cefTRIAXone 1 GM in Sodium Chloride 0.9% 100 ML IV SCH (06:13)
[2017-01-25] MEDS ORDERED: Magnesium Sulfate/Water 2 GM in Premix Bag 1 BAG IV ONE (08:42)
[2017-01-25] MEDS: Pantoprazole 40 MG Tab.CR PO SCH (09:07)
[2017-01-25] MEDS: Cholecalciferol (Vitamin D3) 1,000 Unit Tab PO SCH (09:07)
[2017-01-25] MEDS: Losartan 100 MG Tab PO SCH (09:08)
[2017-01-25] MEDS: Potassium Chloride/Sodium Chloride Tab PO SCH ×3 (09:08→20:56)
[2017-01-25] MEDS: Calcitriol 0.25 MCG Cap PO SCH (09:08)
[2017-01-25] MEDS: Aspirin 81 MG Tab.Chew PO SCH (09:08)
[2017-01-25] MEDS: oxyCODONE 5 MG Tab PO SCH ×2 (09:08→20:57)
[2017-01-25] MEDS: Magnesium Oxide 400 MG Tab PO SCH ×2 (09:08→20:56)
[2017-01-25] MEDS: amLODIPine 5 MG Tab PO SCH (09:08)
[2017-01-25] MEDS: Carvedilol 12.5 MG Tab PO SCH ×2 (09:09→20:56)
[2017-01-25] MEDS ORDERED: Acetaminophen/oxyCODONE 325-5 MG Tab ONE (11:06)
--- NOTE | 2017-01-25 13:08 | PCM.PN ---
- General Info Date of Service: 01/25/17 Admission Dx/Problem (Free Text): Hyponatremia Aida is seen this morning with team rounding; pleasant and orientated. Color is improved today. Pain is better today and now "only when I move"; was up ambulatory with PT this am, did well with pain much improved from yesterday with ambulation. Denies CP, SOB, abd pain. No neuropathy or radiculopathy findings or symptoms today. Sodium continues to be low- no neurologic changes or mental status changes, more awake, alert and conversant today. Functional Status: Reports: pain controlled, tolerating diet (appetite is improved), ambulating, urinating. Denies: new symptoms - Review of Systems HEENT: Reports: no symptoms Pulmonary: Reports: no symptoms. Denies: shortness of breath, cough Cardiovascular: Reports: No Symptoms. Denies: Chest Pain Gastrointestinal: Reports: No symptoms. Denies: Nausea Musculoskeletal: Reports: neck pain, back pain Neurological: Reports: No Symptoms Psychiatric: Reports: no symptoms - Patient Data Vitals - most recent: Last Vital Signs Temp 97.3 F 01/25/17 09:31 Pulse 56 L 01/25/17 09:09 Resp 12 01/25/17 09:31 BP 148/93 H 01/25/17 09:31 Pulse Ox 97 01/25/17 04:18 Weight - most recent: 160 lb 11.2 oz I&O - last 24 hours: Intake & Output 01/24/17 01/25/17 01/25/17 22:59 06:59 14:59 Intake Total 1700 400 220 Output Total 1750 1400 Balance -50 -1000 220 Lab Results last 24 hrs: Laboratory Results - last 24 hr 01/24/17 01/24/17 01/24/17 Range/Units 03:15 03:15 03:15 WBC (3.98-10.04) K/mm3 RBC (3.98-5.22) M/mm3 Hgb (11.2-15.7) gm/L Hct (34.1-44.9) % MCV (79.4-94.8) fl MCH (25.6-32.2) pg MCHC (32.2-35.5) g/dl RDW Std Deviation (36.4-46.3) fL Plt Count (182-369) K/mm3 MPV (9.4-12.3) fl Neut % (Auto) (34.0-71.1) % Lymph % (Auto) (19.3-51.7) % Benzie % (Auto) (4.7-12.5) % Eos % (Auto) (0.7-5.8) Baso % (Auto) (0.1-1.2) % Neut # (Auto) (1.56-6.13) K/mm3 Lymph # (Auto) (1.18-3.74) K/mm3 Benzie # (Auto) (0.24-0.36) K/mm3 Eos # (Auto) (0.04-0.36) K/mm3 Baso # (Auto) (0.01-0.08) K/mm3 Sodium 127 L (136-145) mEq/L Potassium (3.5-5.1) mEq/L Chloride (98-107) mEq/L Carbon Dioxide (21-32) mEq/L Anion Gap (5-15) BUN (7-18) mg/dL Creatinine (0.55-1.02) mg/dL Est Cr Clr Drug Dosing mL/min Estimated GFR (MDRD) (>60) mL/min BUN/Creatinine Ratio (14-18) Glucose (83-115) mg/dL Serum Osmolality 263 L (280-300) mosm/kg Calcium (8.5-10.1) mg/dL Magnesium (1.8-2.4) mg/dl Urine Osmolality 416 (400-1100) mosm/kg Ur Random Sodium 115 (40-220) mEq/L 01/25/17 01/25/17 01/25/17 Range/Units 06:15 06:15 06:30 WBC 4.01 (3.98-10.04) K/mm3 RBC 3.86 L (3.98-5.22) M/mm3 Hgb 10.9 L (11.2-15.7) gm/L Hct 31.8 L (34.1-44.9) % MCV 82.4 (79.4-94.8) fl MCH 28.2 (25.6-32.2) pg MCHC 34.3 (32.2-35.5) g/dl RDW Std Deviation 45.4 (36.4-46.3) fL Plt Count 255 (182-369) K/mm3 MPV 10.3 (9.4-12.3) fl Neut % (Auto) 64.9 (34.0-71.1) % Lymph % (Auto) 18.7 L (19.3-51.7) % Benzie % (Auto) 9.7 (4.7-12.5) % Eos % (Auto) 5.7 (0.7-5.8) Baso % (Auto) 0.5 (0.1-1.2) % Neut # (Auto) 2.60 (1.56-6.13) K/mm3 Lymph # (Auto) 0.75 L (1.18-3.74) K/mm3 Benzie # (Auto) 0.39 H (0.24-0.36) K/mm3 Eos # (Auto) 0.23 (0.04-0.36) K/mm3 Baso # (Auto) 0.02 (0.01-0.08) K/mm3 Sodium 127 L (136-145) mEq/L Potassium 3.9 (3.5-5.1) mEq/L Chloride 93 L (98-107) mEq/L Carbon Dioxide 26 (21-32) mEq/L Anion Gap 11.9 (5-15) BUN 12 (7-18) mg/dL Creatinine 0.7 (0.55-1.02) mg/dL Est Cr Clr Drug Dosing 50.18 mL/min Estimated GFR (MDRD) > 60 (>60) mL/min BUN/Creatinine Ratio 17.1 (14-18) Glucose 90 (83-115) mg/dL Serum Osmolality (280-300) mosm/kg Calcium 8.1 L (8.5-10.1) mg/dL Magnesium 1.7 L (1.8-2.4) mg/dl Urine Osmolality (400-1100) mosm/kg Ur Random Sodium (40-220) mEq/L Sonu Results last 24 hrs: Microbiology 01/24/17 03:15 Urine Culture - Preliminary Urine, Clean Catch Viridans [employer] Streptococci Med Orders - Current: Current Medications Acetaminophen (Tylenol) 650 mg PO Q4H PRN PRN Reason: Pain (Mild 1-3)/fever Last Admin: 01/24/17 12:47 Dose: 650 mg Hydrocodone Bitart/Acetaminophen ([place] 325-5 Mg) 1 tab PO Q4H PRN PRN Reason: Pain (moderate 4-6) Last Admin: 01/25/17 11:12 Dose: 1 tab Albuterol/Ipratropium (Duoneb 3.0-0.5 Mg/3 Ml) 3 ml NEB Q4H PRN PRN Reason: Shortness Of Breath/wheezing Amlodipine Besylate (Norvasc) 5 mg PO DAILY [facility] Last Admin: 01/25/17 09:08 Dose: 5 mg Aspirin (Aspirin) 81 mg PO DAILY [facility] Last Admin: 01/25/17 09:08 Dose: 81 mg Bisacodyl (Dulcolax) 5 mg PO DAILY PRN PRN Reason: Constipation Last Admin: 01/24/17 21:44 Dose: 5 mg Calcitriol (Rocaltrol) 0.25 mcg PO DAILY [facility] Last Admin: 01/25/17 09:08 Dose: 0.25 mcg Carvedilol (Coreg) 12.5 mg PO BID [facility] Last Admin: 01/25/17 09:09 Dose: 12.5 mg Cholecalciferol (Vitamin D3) 5,000 units PO DAILY [facility] Last Admin: 01/25/17 09:07 Dose: 5,000 units Dronabinol (Marinol) 2.5 mg PO TIDAC [facility] Last Admin: 01/25/17 11:09 Dose: 2.5 mg Fentanyl (Duragesic) 12 mcg TRDERM Q72H [facility] Last Admin: 01/24/17 15:13 Dose: 12 mcg Hydralazine HCl (Apresoline) 10 mg IVPUSH Q4H PRN PRN Reason: Hypertension Last Admin: 01/23/17 04:06 Dose: 10 mg Hydromorphone HCl (Dilaudid) 0.25 mg IVPUSH Q2H PRN PRN Reason: Pain (severe 7-10) Last Admin: 01/22/17 15:50 Dose: 0.25 mg Promethazine HCl 12.5 mg/ (Sodium Chloride) 50.5 mls @ 100 mls/hr IV Q6H PRN PRN Reason: Nausea/Vomiting Ceftriaxone Sodium 1 gm/ (Sodium Chloride) 100 mls @ 200 mls/hr IV Q24H [facility] Last Admin: 01/25/17 06:13 Dose: 200 mls/hr Lidocaine (Lidoderm 5%) 700 mg TOP Q24H [facility] Last Admin: 01/24/17 15:12 Dose: 700 mg Lorazepam (Ativan) 0.25 mg IV Q6H PRN PRN Reason: Anxiety Losartan Potassium (Cozaar) 100 mg PO DAILY [facility] Last Admin: 01/25/17 09:08 Dose: 100 mg Magnesium Oxide (Magnesium Oxide) 400 mg PO BID [facility] Last Admin: 01/25/17 09:08 Dose: 400 mg Magnesium Sulfate (Pharmacy To Dose - Magnesium Replacement) 1 dose .XX ASDIRECTED [facility] Meclizine HCl (Antivert) 25 mg PO Q6H PRN PRN Reason: Dizziness Last Admin: 01/21/17 08:36 Dose: 25 mg Methocarbamol (Robaxin) 500 mg PO Q6H PRN PRN Reason: muscle spasms/shouler pain Metoprolol Tartrate (Lopressor) 5 mg IVPUSH Q4H PRN PRN Reason: Tachycardia Miscellaneous Information (Remove Patch) 0 ea TRDERM Q24H [facility] Last Admin: 01/25/17 04:00 Dose: 1 ea Miscellaneous Information (Remove Patch) 0 ea TRDERM Q72H [facility] Ondansetron HCl (Zofran) 4 mg IV Q6H PRN PRN Reason: Nausea/Vomiting Oral Electrolytes (Thermotabs) 2 each PO TID [facility] Last Admin: 01/25/17 09:08 Dose: 2 each Oxycodone HCl (Oxycodone) 5 mg PO BID [facility] Last Admin: 01/25/17 09:08 Dose: 5 mg Pantoprazole Sodium (Protonix) 40 mg PO DAILY [facility] Last Admin: 01/25/17 09:07 Dose: 40 mg Polyethylene Glycol (Miralax) 17 gm PO DAILY PRN PRN Reason: Constipation Potassium Chloride (Pharmacy To Dose - Potassium Replacement) 1 dose .XX ASDIRECTED [facility] Senna/Docusate Sodium (Senna Plus) 1 tab PO BID PRN PRN Reason: Constipation Simvastatin (Zocor) 20 mg PO BEDTIME [facility] Last Admin: 01/24/17 21:34 Dose: 20 mg Temazepam (Restoril) 7.5 mg PO BEDTIME PRN PRN Reason: Sleep Last Admin: 01/24/17 21:34 Dose: 7.5 mg Discontinued Medications Atenolol (Tenormin) 25 mg PO DAILY [facility] Last Admin: 01/22/17 09:02 Dose: Not Given Ceftriaxone Sodium (Rocephin) 1,000 mg IVPUSH Q24H [facility] Last Admin: 01/24/17 07:34 Dose: Not Given Hydrochlorothiazide (Hydrochlorothiazide) 25 mg PO DAILY [facility] Last Admin: 01/24/17 08:39 Dose: 25 mg Sodium Chloride (Normal Saline) 1,000 mls @ 150 mls/hr IV ASDIRECTED [facility] Last Admin: 01/22/17 08:50 Dose: 150 mls/hr Magnesium Sulfate (Magnesium Sulfate 2 Gm In Water 50 Ml) 50 mls @ 50 mls/hr IV ONETIME ONE Stop: 01/22/17 17:29 Last Admin: 01/22/17 16:37 Dose: 50 mls/hr Magnesium Sulfate 2 gm/ Premix 50 mls @ 25 mls/hr IV ONETIME ONE Stop: 01/23/17 10:13 Last Admin: 01/23/17 09:20 Dose: 25 mls/hr Magnesium Sulfate (Magnesium Sulfate 2 Gm In Water 50 Ml) Confirm Administered Dose 50 mls @ as directed .ROUTE .STK-MED ONE Stop: 01/23/17 09:03 Last Admin: 01/23/17 09:25 Dose: Not Given Sodium Chloride (Normal Saline) 1,000 mls @ 75 mls/hr IV ASDIRECTED [facility] Last Admin: 01/24/17 03:18 Dose: 75 mls/hr Magnesium Sulfate 2 gm/ Premix 50 mls @ 25 mls/hr IV ONETIME ONE Stop: 01/24/17 09:59 Last Admin: 01/24/17 08:33 Dose: 25 mls/hr Magnesium Sulfate 2 gm/ Premix 50 mls @ 25 mls/hr IV ONETIME ONE Stop: 01/25/17 10:41 Last Admin: 01/25/17 09:06 Dose: 25 mls/hr Magnesium Oxide (Magnesium Oxide) 400 mg PO DAILY [facility] Last Admin: 01/24/17 08:36 Dose: 400 mg Methocarbamol (Robaxin) 500 mg PO ONETIME ONE Stop: 01/23/17 09:47 Last Admin: 01/23/17 10:14 Dose: 500 mg Magnesium Oxide [ (Magnesium] 500mg) 500 mg PO DAILY [facility] Oral Electrolytes (Thermotabs) 1 each PO TID [facility] Last Admin: 01/24/17 08:35 Dose: 1 each Oxycodone HCl (Oxycodone) 5 mg PO ONETIME ONE Stop: 01/23/17 13:45 Last Admin: 01/23/17 14:02 Dose: 5 mg Oxycodone/Acetaminophen (Percocet 325-5 Mg) Confirm Administered Dose 1 tab .ROUTE .STK-MED ONE Stop: 01/25/17 11:07 Last Admin: 01/25/17 11:15 Dose: Not Given Pneumococcal Polyvalent Vaccine (Pneumovax 23) 0.5 ml SUBCUT .ONCE ONE Stop: 01/23/17 08:25 Scopolamine (Transderm-Scop) 1.5 mg TOP ONETIME ONE Stop: 01/20/17 17:30 Last Admin: 01/20/17 21:17 Dose: 1.5 mg Scopolamine (Transderm-Scop) 1.5 mg TOP ONETIME ONE Stop: 01/20/17 21:06 Last Admin: 01/20/17 23:39 Dose: Not Given Simvastatin (Zocor) 20 mg PO BEDTIME [facility] Last Admin: 01/22/17 20:14 Dose: 20 mg Temazepam (Restoril) 7.5 mg PO BEDTIME PRN PRN Reason: Sleep - Exam Quality Assessment: DVT prophylaxis General: alert, oriented, cooperative, no acute distress HEENT: Pupils equal, Pupils reactive, EOMI, Mucous membr. moist/pink Neck: supple Lungs: Clear to auscultation, Normal respiratory effort Cardiovascular: Regular Rate, Regular Rhythm Abdomen: bowel sounds present, soft, no tenderness, no distension (Female) Exam: Deferred Extremities: no edema, no calf tenderness Peripheral Pulses: 1+: Dorsalis Pedis (L), Dorsalis Pedis (R) Skin: warm, dry, intact Neurological: no new focal deficit, strength equal bilateral, sensation intact Psy/Mental Status: alert, normal affect, normal mood - Problem List & Annotations (1) Dehydration with hyponatremia SNOMED Code(s): 95485173 Code(s): E87.1 - HYPO-OSMOLALITY AND HYPONATREMIA Status: Acute Priority : High Current Visit: Yes (2) Hypomagnesemia SNOMED Code(s): 299296333 Code(s): E83.42 - HYPOMAGNESEMIA Status: Acute Priority: High Current Visit: Yes (3) Shoulder pain, right SNOMED Code(s): 03476648, 64920213 Code(s): M25.511 - PAIN IN RIGHT SHOULDER Status: Acute Priority: High Current Visit: Yes Qualifiers: Chronicity: acute Qualified Code(s): M25.511 - Pain in right shoulder (4) Vertigo SNOMED Code(s): 164881484 Code(s): R42 - DIZZINESS AND GIDDINESS Status: Resolved Priority: High Current Visit: Yes (5) Hypertension SNOMED Code(s): 31546153 Code(s): I10 - ESSENTIAL (PRIMARY) HYPERTENSION Status: Chronic Priority : High Current Visit: Yes Qualifiers: Hypertension type: essential hypertension Qualified Code(s): I10 - Essential (primary) hypertension Annotation/Comment:: acute on chronic (6) Compression fracture of body of thoracic vertebra SNOMED Code(s): 944752116 Code(s): M48.54XA - COLLAPSED VERTEBRA, NEC, THORACIC REGION, INIT Status: Acute Priority: High Current Visit: Yes - Problem List Review Problem List Initiated/Reviewed/Updated: Yes - My Orders Last 24 Hours: My Active Orders 01/24/17 15:00 C Collar Applied [Spinal Immobilization] [RC] ASDIRECTED fentaNYL [Duragesic] 12 mcg TRDERM Q72H 01/24/17 15:39 K Pad [Heat Therapy] [OM.PC] Routine 01/24/17 16:00 Lidocaine 5% [Lidoderm 5%] 700 mg TOP Q24H 01/24/17 Dinner Regular Diet [DIET] 01/25/17 08:46 Consult to Investigations Chief [CONS] Routine 01/25/17 09:00 Magnesium Oxide 400 mg PO BID 01/25/17 09:12 Patient Status [ADT] Routine 01/25/17 Lunch Fluid Restriction [DIET] 01/26/17 05:11 BASIC METABOLIC PANEL,BMP [CHEM] AM CBC WITH AUTO DIFF [HEME] AM MAGNESIUM [CHEM] AM - Plan Plan:: Assessment/Plan: Acute: Hyponatremia - Na 119 at clinic, 120 on admit (132 last week per document, 136 in ER in [place] on 01/07/17), 131-->128 -->126-->127 - Other eval/workup: serum osmolality 263, urine osmolality 416, urine sodium 115 -Prior brain imaging negative- see below - She is not on SSRIs/SNRIs - Appetite improved - Salt tablet, increase to 2 tab po TID - Hold HCTZ - Routine BMP to follow Hypomagnesemia -Replace and cont to follow daily labs Compression fx T2 thoracic vertebra -S/P recent fall on 01/07/17 -Eval in [place] during hospitalization recently; will obtain records for review--CT reports from 01/07/17 show "acute mid anterior wedging compression fracture at T2, no retropulsion. No extension into posterior elements". -Query if surgical candidate for kyphoplasty---discussed with Dr. Hsu, T2 is not amendable to kyphoplasty. Recommends soft cervical collar, muscle relaxant, heat/ice, PT/OT and pain management. Added fentanyl patch to current regimen along with lidocaine patch. -Patient refuses c-collar as makes her feel "claustrophobic". Reviewed rational, continues to refuse. Pain is improved today however. Right shoulder pain; believe this is sequela of T2 compression fx--improved to resolving -s/p fall at home -Xray of rt shoulder negative for acute findings -robaxin, muscle relaxant now and TID PRN. Pain management as above. Cont PT/ OT. - Spoke with Dr. Hsu re compression fx---see above AUTI -UC with viridans group strep, sensitivity pending -Rocephin IV Q24 hours Generalized Weakness, Improved - TFT Low-normal TSH and Elevated FT4-suggestive of Hyperthyroidism; T3 elevated at 74 also suggestive of hyperthyroidism---see below - Vit D level is low; supplement with vit D3 5,000 IU daily - Continue PT/OT Dizziness/Vertigo --improving - Has Hx/o Sensorineural Hearing Loss - Currently being worked on by Dr. Alas - PT for vestibular eval - PRN meds for symptomatic control - Defer to Dr. Alas outpatient once discharge for further eval -Patient has had prior outpatient workup including MRI of brain without contrast and CT of brain without contrast on 01/20/17, both unremarkable for acute findings. Prior echo done 04/2016 with EF of 65%, grade 1 diastolic dysfunction- unchanged from 05/05/15 - Carotid US done yesterday with report of mild plaque at 1-49%, no concerns at this time and is unchanged from prior study done. Sinus Bradycardia---Resolved or unchanged--stable - On EKG form the clinic it shows a HR of 55 and 1st Degree AV Block - Repeat EKG: Sinus Bradycardia with 1st Degree AVB - Telemetry to monitor--no acute changes - D/c'd atenolol and start coreg 12.5 mg po BID, tolerating well Abnormal TFT--low normal TSH with elevated T4 - Result suggestive of Hyperthyroidism - T3 also elevated at 74, suggestive of hyperthyroidism - Consider outpatient work up and/or follow up thyroid studies 3 months to follow Resolved: Hx/o Hypotension on admit S/p Poor Appetite - Marinol 2.5 mg po 15-20 mins before each meal - Can have anything she wants to eat - Appetite slowly improving Chronic: HTN HLD Hx/o Sensorineural Hearing Loss Chronic Back Pain Hypocalcemia and Hypomagnesemia by hx Hx/o Pancreatic Cyst Pulmonary Nodules T2 Vertebral Fracture--acute as above Renal Mass Other: Routine AM Labs Fall and Seizure Precautions Continue PT/OT DVT/GI prophylax SW/CM for d/c planning -Patient lives on her own at [facility]. Therapies recommending SNF rehab stay at this time, family also agrees as they have been with her for last 9+ days, caring for her--requires 24hour care at this time due to pain in her back/ shoulders, assistance with mobility. SW arranging SNF placement at this time. CM to arrange Neurosurgery or home health billing specialist eval as outpatient prior to discharge. -Plan correction or improvement of sodium prior to discharge for rehab stay at [facility]. Patient is Full Code status
[2017-01-25] MEDS: Lidocaine 5% 700 MG Patch TOP SCH (15:37)
[2017-01-25] MEDS: Simvastatin 20 MG Tab PO SCH (20:55)
[2017-01-25] MEDS: Temazepam 7.5 MG Cap PO PRN (21:14)
[2017-01-26] MEDS: hydrALAZINE 20 MG/ML SDV IVPUSH PRN (03:53)
[2017-01-26] MEDS: Acetaminophen 325 MG Tab PO PRN (05:04)
[2017-01-26] MEDS: Dronabinol 2.5 MG Cap PO SCH ×3 (05:14→10:17)
[2017-01-26] MEDS: cefTRIAXone 1 GM in Sodium Chloride 0.9% 100 ML IV SCH (05:19)
[2017-01-26] MEDS ORDERED: Magnesium Sulfate/Water 2 GM in Premix Bag 1 BAG IV ONE (08:15)
[2017-01-26] MEDS ORDERED: Magnesium Sulfate/Water 50 ML ONE (08:18)
[2017-01-26] MEDS: Aspirin 81 MG Tab.Chew PO SCH (08:26)
[2017-01-26] MEDS: Carvedilol 12.5 MG Tab PO SCH (10:08)
[2017-01-26] MEDS: Losartan 100 MG Tab PO SCH (10:11)
[2017-01-26] MEDS: amLODIPine 5 MG Tab PO SCH (10:12)
[2017-01-26] MEDS: Magnesium Oxide 400 MG Tab PO SCH (10:12)
[2017-01-26] MEDS: oxyCODONE 5 MG Tab PO SCH (10:13)
[2017-01-26] MEDS: Potassium Chloride/Sodium Chloride Tab PO SCH (10:14)
[2017-01-26] MEDS: Pantoprazole 40 MG Tab.CR PO SCH (10:14)
[2017-01-26] MEDS: Calcitriol 0.25 MCG Cap PO SCH (10:14)
[2017-01-26] MEDS: Cholecalciferol (Vitamin D3) 1,000 Unit Tab PO SCH (10:15)
[2017-01-26 10:18] VITALS: BP 124/92
--- NOTE | 2017-01-26 11:14 | PCM.DCSUM1 ---
Discharge Summary - Hospital Course Free Text/Narrative:: This is an 86-year-old elderly white female with past medical history of hypertension, hyperlipidemia, COPD, history of CVA, history of cholecystectomy, thoracic aneurysm, chronic back pain, osteoporosis, osteoarthritis, history of basal cell carcinoma, history of H. pylori infection, chronic hypocalcemia and hypomagnesemia, history of pulmonary nodules, chronic cough, hx/o sensorineural hearing loss, and history of renal mass who presented to his primary care office for evaluation of nausea without emesis and was found to be hyponatremic with a sodium level of 119. Her symptoms is associated with anorexia, dehydration, vertigo, fatigue, neck pain and generalized weakness. She denies having systemic infection. Patient was recently admitted in [place] after recent fall related to hypotension. During that time, she was found to have T2 vertebral fracture but no invasive intervention offered. Her initial workup in the clinic shows a CBC remarkable for platelet 386 and neutrophils 83.1%. Her chemistry is remarkable for sodium 119, chloride 86, BUN 22, glucose 126, and alkaline phosphatase 121. Head CT scan report reads no acute intra-cranial abnormality. Her brain MRI report reads no acute diffusion abnormalities identified. Patient is being admitted for symptomatic hyponatremia. Her CODE STATUS is full. Patient was hydrated, electrolytes replaced and supplemented. Sodium level improved to high 120's, low 130's and is asymptomatic now. Nausea, dehydration and anorexia resolved. She continues to have intermittent vertigo but significantly improved from time of admission. Pain to back/neck/shoulders is significantly improved with current pain regimen of fentanyl patch, prn norco, lidoderm patch and PT/OT. She refused soft cervical collar for comfort as made her feel claustrophobic. Spine specialty eval will be arranged per family if needed at a later time. She underwent cognitive eval and speech eval with CREDIT UNDERWRITER, finding her with moderate cognitive impairment- memory, problem solving and executive functioning; recommends assistance with executive functioning such as meds, finances. Swallow eval was WNL, cont with usual diet and thin liquids, she has trouble with large pills, recommends crushing any large pills/tablets. She was found to have AUTI, treated with Rocephin x 3 days IV, will cont with Ceftin PO BID x 5 more days as outpatient. She will cont with PT/OT/ST at [facility]. She plans to return to [facility] once able. - Discharge Data Discharge Date: 01/26/17 (admit date 01/20/17) Discharge Disposition: DC/Tfer to SNF 03 Condition: Good - Discharge Diagnosis/Problem(s) (1) Dehydration with hyponatremia SNOMED Code(s): 96531595 ICD Code: E87.1 - HYPO-OSMOLALITY AND HYPONATREMIA Status: Acute Priority : High Current Visit: Yes (2) Hypomagnesemia SNOMED Code(s): 068044535 ICD Code: E83.42 - HYPOMAGNESEMIA Status: Acute Priority: High Current Visit: Yes (3) Shoulder pain, right SNOMED Code(s): 33861089, 70237564 ICD Code: M25.511 - PAIN IN RIGHT SHOULDER Status: Acute Priority: High Current Visit: Yes Qualifiers: Chronicity: acute Qualified Code(s): M25.511 - Pain in right shoulder (4) Vertigo SNOMED Code(s): 933572908 ICD Code: R42 - DIZZINESS AND GIDDINESS Status: Resolved Priority: High Current Visit: Yes (5) Hypertension SNOMED Code(s): 63137671 ICD Code: I10 - ESSENTIAL (PRIMARY) HYPERTENSION Status: Chronic Priority : High Current Visit: Yes Problem Details: acute on chronic Qualifiers: Hypertension type: essential hypertension Qualified Code(s): I10 - Essential (primary) hypertension (6) Compression fracture of body of thoracic vertebra SNOMED Code(s): 169112840 ICD Code: M48.54XA - COLLAPSED VERTEBRA, NEC, THORACIC REGION, INIT Status : Acute Priority: High Current Visit: Yes - Patient Summary/Data Operative Procedure(s) Performed: None Complications: None Consults: Consultations 01/24/17 12:55 Consult to Speech Language Pathology [CREDIT UNDERWRITER Evaluation and Treatment] [CONS] Routine 01/25/17 08:46 Consult to Assistant Teacher Primary [CONS] Routine Labs Pending at D/C: None Recommended Follow-up Testing/Procedures: Follow up with PCP within 1 week of discharge; Dr. Velazquez to assume care while [place] Recheck BMP and mag levels on Monday (01/30/17) Planned Operative Procedure(s) after DC: None Hospital Course: As above - Patient Instructions Diet: Usual Diet as Tolerated (high sodium diet for this time) Fluid Restriction: 1500 mL (free water fluid restriction only; can have all other fluids) Activity: As Tolerated (PT/OT to continue; ST to continue for cognitive therapy) Driving: Do Not Drive Showering/Bathing: May Shower Notify Provider of: Fever, Increased Pain, Nausea and/or Vomiting - Discharge Plan Prescriptions/Med Rec: Acetaminophen/HYDROcodone [Shattuck 325-5 MG] 1 tab PO Q4H PRN #40 tablet PRN Reason: Pain Carvedilol [Coreg] 12.5 mg PO BID #60 tablet Cefuroxime [Ceftin] 500 mg PO BID #10 tablet Cholecalciferol (Vitamin D3) [Vitamin D3] 5,000 units PO DAILY #30 tablet Docusate Sodium/Sennosides [Senna Plus] 1 tab PO BID PRN #60 tablet PRN Reason: Constipation Lidocaine 5% [Lidoderm 5%] 700 mg TOP Q24H #1 box Magnesium Oxide 800 mg PO BID #60 tablet Meclizine [Antivert] 25 mg PO Q6H PRN #30 tab.chew PRN Reason: Dizziness Methocarbamol [Robaxin] 500 mg PO Q6H PRN #40 tablet PRN Reason: muscle spasms/back pain Potassium Chloride/NaCl [Thermotabs] 2 each PO TID #90 tablet amLODIPine [Norvasc] 5 mg PO DAILY #30 tablet fentaNYL [Duragesic] 12 mcg TRDERM Q72H #1 box Home Medications: Home Meds Aspirin 81 mg PO DAILY 05/04/15 [History] Calcitriol [Rocaltrol] 0.25 mcg PO DAILY 05/04/15 [History] Losartan [Cozaar] 100 mg PO DAILY 05/04/15 [History] Omeprazole 20 mg PO DAILY 05/04/15 [History] Simvastatin [Zocor] 20 mg PO BEDTIME 05/04/15 [History] Acetaminophen [Tylenol] 650 mg PO Q4H PRN #0 tablet 06/08/15 [Rx] Acetaminophen/HYDROcodone [Shattuck 325-5 MG] 1 tab PO Q4H PRN #40 tablet 01/26/17 [Rx] Carvedilol [Coreg] 12.5 mg PO BID #60 tablet 01/26/17 [Rx] Cefuroxime [Ceftin] 500 mg PO BID #10 tablet 01/26/17 [Rx] Cholecalciferol (Vitamin D3) [Vitamin D3] 5,000 units PO DAILY #30 tablet [Rx] Docusate Sodium/Sennosides [Senna Plus] 1 tab PO BID PRN #60 tablet 01/26/17 [Rx ] Lidocaine 5% [Lidoderm 5%] 700 mg TOP Q24H #1 box 01/26/17 [Rx] Magnesium Oxide 800 mg PO BID #60 tablet 01/26/17 [Rx] Meclizine [Antivert] 25 mg PO Q6H PRN #30 tab.chew 01/26/17 [Rx] Methocarbamol [Robaxin] 500 mg PO Q6H PRN #40 tablet 01/26/17 [Rx] Potassium Chloride/NaCl [Thermotabs] 2 each PO TID #90 tablet 01/26/17 [Rx] amLODIPine [Norvasc] 5 mg PO DAILY #30 tablet 01/26/17 [Rx] fentaNYL [Duragesic] 12 mcg TRDERM Q72H #1 box 01/26/17 [Rx] Patient Handouts: Hyponatremia, [id number], Hypomagnesemia, Urinary Tract Infection, Adult, [id number], Dehydration, Adult, [id number], Spinal Compression Fracture Forms: ED Department Discharge Referrals: Alysa Hammond NP [Primary Care Provider] - (1-2 weeks) Ted Velazquez Jr, MD [Ordering Only Provider] - (1-2weeks) - Discharge Summary/Plan Comment DC Time >30 min.: Yes (40 min) - General Info Date of Service: 01/26/17 Admission Dx/Problem (Free Text: Hyponatremia Aida is seen this morning with team rounding; pleasant and orientated. Color is improved today. Pain is better today and now "only when I move"; was up ambulatory with PT this am, did well with pain much improved from yesterday with ambulation. Denies CP, SOB, abd pain. No neuropathy or radiculopathy findings or symptoms today. Sodium is stable and asymptomatic Dizziness is improved Plans for DC to SNF today. Functional Status: Reports: pain controlled, tolerating diet (appetite improved) , ambulating (less pain with ambulation), urinating - Review of Systems General: Reports: Weakness (improved) HEENT: Reports: no symptoms Pulmonary: Reports: no symptoms. Denies: cough Cardiovascular: Reports: No Symptoms. Denies: Chest Pain Gastrointestinal: Reports: No symptoms. Denies: Abdominal pain, Nausea Genitourinary: Reports: no symptoms Musculoskeletal: Reports: back pain Neurological: Reports: Dizziness (minimal- improved). Denies: Headache, Numbness, Tingling Psychiatric: Reports: no symptoms - Patient Data Vitals - Most Recent: Last Vital Signs Temp 97.3 F 01/25/17 21:08 Pulse 61 01/26/17 10:08 Resp 18 01/25/17 21:08 BP 124/92 H 01/26/17 10:12 Pulse Ox 96 01/25/17 21:08 Weight - Most Recent: 156 lb 11.2 oz I&O - Last 24 hours: Intake & Output 01/25/17 01/26/17 01/26/17 22:59 06:59 14:59 Intake Total 290 200 120 Output Total 500 950 Balance -210 -750 120 Lab Results - Last 24 hrs: Laboratory Results - last 24 hr 01/26/17 01/26/17 Range/Units 06:15 06:15 WBC 4.26 (3.98-10.04) K/mm3 RBC 3.75 L (3.98-5.22) M/mm3 Hgb 10.4 L (11.2-15.7) gm/L Hct 30.7 L (34.1-44.9) % MCV 81.9 (79.4-94.8) fl MCH 27.7 (25.6-32.2) pg MCHC 33.9 (32.2-35.5) g/dl RDW Std Deviation 44.6 (36.4-46.3) fL Plt Count 276 (182-369) K/mm3 MPV 10.0 (9.4-12.3) fl Neut % (Auto) 70.5 (34.0-71.1) % Lymph % (Auto) 14.3 L (19.3-51.7) % Emmet % (Auto) 10.1 (4.7-12.5) % Eos % (Auto) 4.7 (0.7-5.8) Baso % (Auto) 0.2 (0.1-1.2) % Neut # (Auto) 3.00 (1.56-6.13) K/mm3 Lymph # (Auto) 0.61 L (1.18-3.74) K/mm3 Emmet # (Auto) 0.43 H (0.24-0.36) K/mm3 Eos # (Auto) 0.20 (0.04-0.36) K/mm3 Baso # (Auto) 0.01 (0.01-0.08) K/mm3 Sodium 127 L (136-145) mEq/L Potassium 3.7 (3.5-5.1) mEq/L Chloride 94 L (98-107) mEq/L Carbon Dioxide 25 (21-32) mEq/L Anion Gap 11.7 (5-15) BUN 13 (7-18) mg/dL Creatinine 0.7 (0.55-1.02) mg/dL Est Cr Clr Drug Dosing 50.18 mL/min Estimated GFR (MDRD) > 60 (>60) mL/min BUN/Creatinine Ratio 18.6 H (14-18) Glucose 102 (83-115) mg/dL Calcium 8.1 L (8.5-10.1) mg/dL Magnesium 1.6 L (1.8-2.4) mg/dl ELIAZAR Results - Last 24 hrs: Microbiology 01/24/17 03:15 Urine Culture - Preliminary Urine, Clean Catch Viridans Group Streptococci Med Orders - Current: Current Medications Acetaminophen (Tylenol) 650 mg PO Q4H PRN PRN Reason: Pain (Mild 1-3)/fever Last Admin: 01/26/17 05:04 Dose: 650 mg Hydrocodone Bitart/Acetaminophen (Shattuck 325-5 Mg) 1 tab PO Q4H PRN PRN Reason: Pain (moderate 4-6) Last Admin: 01/25/17 20:56 Dose: 1 tab Albuterol/Ipratropium (Duoneb 3.0-0.5 Mg/3 Ml) 3 ml NEB Q4H PRN PRN Reason: Shortness Of Breath/wheezing Amlodipine Besylate (Norvasc) 5 mg PO DAILY SEBASTIÁN Last Admin: 01/26/17 10:12 Dose: 5 mg Aspirin (Aspirin) 81 mg PO DAILY SEBASTIÁN Last Admin: 01/26/17 08:26 Dose: 81 mg Bisacodyl (Dulcolax) 5 mg PO DAILY PRN PRN Reason: Constipation Last Admin: 01/24/17 21:44 Dose: 5 mg Calcitriol (Rocaltrol) 0.25 mcg PO DAILY [facility] Last Admin: 01/26/17 10:14 Dose: 0.25 mcg Carvedilol (Coreg) 12.5 mg PO BID [facility] Last Admin: 01/26/17 10:08 Dose: 12.5 mg Cholecalciferol (Vitamin D3) 5,000 units PO DAILY [facility] Last Admin: 01/26/17 10:15 Dose: 5,000 units Dronabinol (Marinol) 2.5 mg PO TIDAC [facility] Last Admin: 01/26/17 10:17 Dose: 2.5 mg Fentanyl (Duragesic) 12 mcg TRDERM Q72H [facility] Last Admin: 01/24/17 15:13 Dose: 12 mcg Hydralazine HCl (Apresoline) 10 mg IVPUSH Q4H PRN PRN Reason: Hypertension Last Admin: 01/26/17 03:53 Dose: 10 mg Hydromorphone HCl (Dilaudid) 0.25 mg IVPUSH Q2H PRN PRN Reason: Pain (severe 7-10) Last Admin: 01/22/17 15:50 Dose: 0.25 mg Promethazine HCl 12.5 mg/ (Sodium Chloride) 50.5 mls @ 100 mls/hr IV Q6H PRN PRN Reason: Nausea/Vomiting Ceftriaxone Sodium 1 gm/ (Sodium Chloride) 100 mls @ 200 mls/hr IV Q24H [facility] Last Admin: 01/26/17 05:19 Dose: 200 mls/hr Lidocaine (Lidoderm 5%) 700 mg TOP Q24H [facility] Last Admin: 01/25/17 15:37 Dose: 700 mg Lorazepam (Ativan) 0.25 mg IV Q6H PRN PRN Reason: Anxiety Last Admin: 01/26/17 05:10 Dose: 0.25 mg Losartan Potassium (Cozaar) 100 mg PO DAILY [facility] Last Admin: 01/26/17 10:11 Dose: 100 mg Magnesium Oxide (Magnesium Oxide) 400 mg PO BID [facility] Last Admin: 01/26/17 10:12 Dose: 400 mg Magnesium Sulfate (Pharmacy To Dose - Magnesium Replacement) 1 dose .XX ASDIRECTED [facility] Meclizine HCl (Antivert) 25 mg PO Q6H PRN PRN Reason: Dizziness Last Admin: 01/21/17 08:36 Dose: 25 mg Methocarbamol (Robaxin) 500 mg PO Q6H PRN PRN Reason: muscle spasms/shouler pain Metoprolol Tartrate (Lopressor) 5 mg IVPUSH Q4H PRN PRN Reason: Tachycardia Miscellaneous Information (Remove Patch) 0 ea TRDERM Q24H [facility] Last Admin: 01/26/17 03:46 Dose: 1 ea Miscellaneous Information (Remove Patch) 0 ea TRDERM Q72H [facility] Ondansetron HCl (Zofran) 4 mg IV Q6H PRN PRN Reason: Nausea/Vomiting Oral Electrolytes (Thermotabs) 2 each PO TID [facility] Last Admin: 01/26/17 10:14 Dose: 2 each Oxycodone HCl (Oxycodone) 5 mg PO BID [facility] Last Admin: 01/26/17 10:13 Dose: 5 mg Pantoprazole Sodium (Protonix) 40 mg PO DAILY [facility] Last Admin: 01/26/17 10:14 Dose: 40 mg Polyethylene Glycol (Miralax) 17 gm PO DAILY PRN PRN Reason: Constipation Potassium Chloride (Pharmacy To Dose - Potassium Replacement) 1 dose .XX ASDIRECTED [facility] Senna/Docusate Sodium (Senna Plus) 1 tab PO BID PRN PRN Reason: Constipation Last Admin: 01/26/17 06:13 Dose: 1 tab Simvastatin (Zocor) 20 mg PO BEDTIME [facility] Last Admin: 01/25/17 20:55 Dose: 20 mg Temazepam (Restoril) 7.5 mg PO BEDTIME PRN PRN Reason: Sleep Last Admin: 01/25/17 21:14 Dose: 7.5 mg Discontinued Medications Atenolol (Tenormin) 25 mg PO DAILY [facility] Last Admin: 01/22/17 09:02 Dose: Not Given Ceftriaxone Sodium (Rocephin) 1,000 mg IVPUSH Q24H [facility] Last Admin: 01/24/17 07:34 Dose: Not Given Hydrochlorothiazide (Hydrochlorothiazide) 25 mg PO DAILY [facility] Last Admin: 01/24/17 08:39 Dose: 25 mg Sodium Chloride (Normal Saline) 1,000 mls @ 150 mls/hr IV ASDIRECTED [facility] Last Admin: 01/22/17 08:50 Dose: 150 mls/hr Magnesium Sulfate (Magnesium Sulfate 2 Gm In Water 50 Ml) 50 mls @ 50 mls/hr IV ONETIME ONE Stop: 01/22/17 17:29 Last Admin: 01/22/17 16:37 Dose: 50 mls/hr Magnesium Sulfate 2 gm/ Premix 50 mls @ 25 mls/hr IV ONETIME ONE Stop: 01/23/17 10:13 Last Admin: 01/23/17 09:20 Dose: 25 mls/hr Magnesium Sulfate (Magnesium Sulfate 2 Gm In Water 50 Ml) Confirm Administered Dose 50 mls @ as directed .ROUTE .STK-MED ONE Stop: 01/23/17 09:03 Last Admin: 01/23/17 09:25 Dose: Not Given Sodium Chloride (Normal Saline) 1,000 mls @ 75 mls/hr IV ASDIRECTED [facility] Last Admin: 01/24/17 03:18 Dose: 75 mls/hr Magnesium Sulfate 2 gm/ Premix 50 mls @ 25 mls/hr IV ONETIME ONE Stop: 01/24/17 09:59 Last Admin: 01/24/17 08:33 Dose: 25 mls/hr Magnesium Sulfate 2 gm/ Premix 50 mls @ 25 mls/hr IV ONETIME ONE Stop: 01/25/17 10:41 Last Admin: 01/25/17 09:06 Dose: 25 mls/hr Magnesium Sulfate 2 gm/ Premix 50 mls @ 25 mls/hr IV ONETIME ONE Stop: 01/26/17 10:14 Last Admin: 01/26/17 10:24 Dose: 25 mls/hr Magnesium Sulfate (Magnesium Sulfate 2 Gm In Water 50 Ml) Confirm Administered Dose 50 mls @ as directed .ROUTE .STK-MED ONE Stop: 01/26/17 08:19 Magnesium Oxide (Magnesium Oxide) 400 mg PO DAILY [facility] Last Admin: 01/24/17 08:36 Dose: 400 mg Methocarbamol (Robaxin) 500 mg PO ONETIME ONE Stop: 01/23/17 09:47 Last Admin: 01/23/17 10:14 Dose: 500 mg Magnesium Oxide [ (Magnesium] 500mg) 500 mg PO DAILY [facility] Oral Electrolytes (Thermotabs) 1 each PO TID [facility] Last Admin: 01/24/17 08:35 Dose: 1 each Oxycodone HCl (Oxycodone) 5 mg PO ONETIME ONE Stop: 01/23/17 13:45 Last Admin: 01/23/17 14:02 Dose: 5 mg Oxycodone/Acetaminophen (Percocet 325-5 Mg) Confirm Administered Dose 1 tab .ROUTE .STK-MED ONE Stop: 01/25/17 11:07 Last Admin: 01/25/17 11:15 Dose: Not Given Pneumococcal Polyvalent Vaccine (Pneumovax 23) 0.5 ml SUBCUT .ONCE ONE Stop: 01/23/17 08:25 Scopolamine (Transderm-Scop) 1.5 mg TOP ONETIME ONE Stop: 01/20/17 17:30 Last Admin: 01/20/17 21:17 Dose: 1.5 mg Scopolamine (Transderm-Scop) 1.5 mg TOP ONETIME ONE Stop: 01/20/17 21:06 Last Admin: 01/20/17 23:39 Dose: Not Given Simvastatin (Zocor) 20 mg PO BEDTIME SEBASTIÁN Last Admin: 01/22/17 20:14 Dose: 20 mg Temazepam (Restoril) 7.5 mg PO BEDTIME PRN PRN Reason: Sleep - Exam Quality Assessment: Reports: DVT prophylaxis General: Reports: alert, oriented, cooperative, no acute distress (pleasant and more talkative today) HEENT: Reports: Pupils equal, Pupils reactive, EOMI, Mucous membr. moist/pink Neck: Reports: supple Lungs: Reports: Clear to auscultation, Normal respiratory effort Cardiovascular: Reports: Regular Rate, Regular Rhythm Abdomen: Reports: bowel sounds present, soft, no tenderness, no distension (Female) Exam: Deferred Rectal (Female) Exam: Deferred Back Exam: Reports: Normal Inspection Extremities: Reports: no edema Wound/Incisions: Reports: healing well Neurological: Reports: no new focal deficit *Q Meaningful Use (DIS) - VTE *Q VTE Criteria *Q: - Stroke *Q Stroke Criteria *Q: - AMI *Q AMI Criteria *Q:
[2017-01-26] MEDS ORDERED: Furosemide 20 MG/2 ML VIAL IVPUSH ONE (12:00)
== END 2017-01-26 13:30 | DRG 641 ==
LOC: JD.ED 14:51 → JD.MS 17:43 → UNDOADMIN 17:43 → JD.MS 20:13 → UNDODISIN 01-26 13:30
PROVIDERS: ADMIT Internal Medicine; ATTEND Internal Medicine
DX: E87.1 Hypo-osmolality and hyponatremia (principal); M48.54XA Collapsed vertebra, not elsewhere classified, thoracic region, initial encounter for fracture; E86.0 Dehydration; R42 Dizziness and giddiness; I10 Essential (primary) hypertension; E78.5 Hyperlipidemia, unspecified; J44.9 Chronic obstructive pulmonary disease, unspecified; E83.42 Hypomagnesemia; M25.511 Pain in right shoulder; R00.1 Bradycardia, unspecified; R63.0 Anorexia; W19.XXXA Unspecified fall, initial encounter; I71.2 Thoracic aortic aneurysm, without rupture; N28.89 Other specified disorders of kidney and ureter; R91.1 Solitary pulmonary nodule; Z86.73 Personal history of transient ischemic attack (TIA), and cerebral infarction without residual deficits; Z88.8 Allergy status to other drugs, medicaments and biological substances; Z79.899 Other long term (current) drug therapy; R41.82 Altered mental status, unspecified
CPT/HCPCS: 36415 ×2; 70450; 70551; 80053; 81001; 83735; 85025; 96360; 96361; 99284; J7040; 73030-26-RT; 73030-RT; 80048; 82306; 82553; 83930; 83935; 84295; 84300; 84439; 84443; 84480; 84484; 87086; 87184; 87641; 92610-GN; 93005; 93880; 93880-26; 96125-GN; 97110-GO; 97110-GP; 97112-GP; 97116-GP; 97162-GP; 97167-GO; 97530-GP; 97532-GN; 97535-GO; 99214; 99223; 99232; 99239; 99283; A9270-GY; J0360; J0696; J1170; J2060; J3475; J7030; Q0167